=== PATIENT | female | born 1945 | race Caucasian/White ===

== ENCOUNTER → 2016-06-21 | Outpatient (CLI) | payer OTHER ==
[~2016-06-21] MED LIST: ALBINS INH; ALBUAER2 INH; APIX1TAB3 PO; CHOL1TAB42 PO; CYAN100020 PO; CZR50 PO; FIBER PO; FLUT0.15 NAE; LEVA45AE; LEVA45AE PO; LORA-741 PO; MAGN1TAB21 PO; MELA1CAP9 PO; MELA1TAB3 PO; MELATAB2 PO; MGN PO; MOME200A INH; MULT-190 PO; OMEG10007 PO; PANT40TA2 PO; POTA550T4 PO; PROB1CAP41 PO; SNG10 PO; SOTA120T PO; SOTA160T PO; TPRSR/50 PO; TRIATAB3 PO; XPNINS NEB
--- NOTE | 2016-06-21 16:09 | MAMMOGRAPHY REPORT ---
BILATERAL DIGITAL SCREENING MAMMOGRAM WITH CAD: 06/21/2016 CLINICAL HISTORY: Routine screening. Patient has no complaints. TECHNIQUE: Current study was also evaluated with a Computer Aided Detection (CAD) system. Bilatera l CC and MLO and XCCL views were obtained. COMPARISON: Comparison is made to exams dated: 06/16/2015 mammogram, 06/10/2014 mammogram, 06/04/2013 mammogram, 06/01/2012 mammogram, 05/30/2011 mammogram, and 03/21/2010 mammogram - [facility] enter. BREAST COMPOSITION: The tissue of both breasts is almost entirely fatty. FINDINGS: No suspicious masses, calcifications, or areas of architectural distortion are noted in e ither breast. There has been no significant interval change compared to prior exams. Bilateral samantha gn-appearing calcifications are not significantly changed. IMPRESSION: ACR BI-RADS CATEGORY 2: BENIGN There is no mammographic evidence of malignancy. A 1 year screening mammogram is recommended. The p atient will receive written notification of the results. Approximately 10% of breast cancers are not detected with mammography. A negative mammographic repor t should not delay biopsy if a clinically suggestive mass is present. Luzmaria Alexandra M.D. /:06/21/2016 15:56:46 Acid Tender: Lupe Knox, [facility] letter sent: Normal 1/2 BI-RADS Code: ACR BI-RADS Category 2: Benign
== END | disposition home or self-care (01) ==
LOC: C.MAMM 13:16
PROVIDERS: ATTEND Internal Medicine
DX: Z12.31 Encounter for screening mammogram for malignant neoplasm of breast (principal)

== ENCOUNTER → 2016-07-05 | Outpatient (CLI) | payer OTHER ==
[2016-07-05 16:38] LABS: BASO % 0.5 %; BASO ABS # 0.03 K/uL (0-0.2); COMPLETE YES; EOS % 1.4 %; HEMATOCRIT 37.9 % (37-47); IG% 0.2 %; LYMPH ABS # 1.24 K/uL (1.2-3.4); MEAN CELL VOLUME 97.9 fL (80-100); MEAN CORPUSCULAR HGB CONC 32.7 g/dl (32-36); MEAN PLATELET VOLUME 11.8 fL (7.4-10.4); MONO % 10.2 %; NEUT % 68.7 %; PLATELET COUNT 246 K/uL (130-400); RED BLOOD COUNT 3.87 M/uL (4.2-5.4); WHITE BLOOD COUNT 6.54 K/uL (4.8-10.8)
[2016-07-05 18:46] LABS: ALT/SGPT 20 U/L (12-78); AST/SGOT 9 U/L (15-37); BLOOD UREA NITROGEN 27 mg/dl (7-18); BUN/CREATININE RATIO 33.7 (10-20); CALCIUM 9.8 mg/dl (8.5-10.1); CARBON DIOXIDE 32 mmol/L (21-32); CHLORIDE 104 mmol/L (98-107); GLUCOSE 88 mg/dl (70-99); POTASSIUM 4.3 mmol/L (3.5-5.1); SODIUM 140 mmol/L (136-145)
[2016-07-05 18:55] LABS: ALB/GLOB RATIO 1.1 (0.9-2); ALKALINE PHOSPHATASE 53 U/L (45-117); MAGNESIUM 2.5 mg/dl (1.8-2.4)
== END | disposition home or self-care (01) ==
LOC: C.LAB1850 14:23
PROVIDERS: ATTEND Internal Medicine
DX: Z00.00 Encounter for general adult medical examination without abnormal findings (principal); I10 Essential (primary) hypertension; I48.0 Paroxysmal atrial fibrillation; Z11.59 Encounter for screening for other viral diseases

== ENCOUNTER → 2016-10-07 | Day surgery (SDC) | payer OTHER ==
[~2016-10-07] VITALS: Ht 162.6 cm; Wt 125.0 kg
[~2016-10-07] MED LIST changes: -FIBER PO; -LEVA45AE PO; +LIDOCAINE HCL 2% 2 ML VIAL (20MG/ML) ONE; -MAGN1TAB21 PO; -MELA1CAP9 PO; -MELATAB2 PO; -PANT40TA2 PO; -PROB1CAP41 PO; +PROPOFOL IV EMULSION 10 MG/ML 20 ML VIAL IV ONE; +PRT/40 PO; +XPNINS; -XPNINS NEB
[2016-10-07 07:12] VITALS: BP 146/100; PULSE 117; TEMP 36.5; O2SAT 99; Ht 162.6 cm; Wt 125.0 kg
[2016-10-07 08:05] VITALS: BP 146/100; PULSE 90; O2SAT 100
[2016-10-07 08:10] VITALS: BP 141/80; PULSE 110; O2SAT 100
--- NOTE | 2016-10-07 08:13 | History & Physical Bridge Note ---
H&P Re-Evaluation Bridge Note: I have examined the patient, reviewed the History & Physical and in the interval since the performance of the History & Physical I have noted the following changes of clinical significance: No changes noted. I reviewed the indications, procedure, risks and alternatives with her and she understands and agrees to proceed. Consent obtained.
[2016-10-07 08:15] VITALS: BP 109/76; PULSE 95; O2SAT 100
[2016-10-07 08:20] VITALS: BP 99/39; PULSE 56; O2SAT 100
--- NOTE | 2016-10-07 08:21 | Cardioversion ---
Electricial Cardioversion Rpt Date of Service: 10/07/2016 Electrical Cardioversion Rprt Successful uncomplicated cardioversion using a 200J synchronized biphasic shock via marcelina-posterior patch electrodes. Pt awoke without sequelae.
--- NOTE | 2016-10-07 08:40 | Anesthesiology Progress Note ---
Anesthesia Post Op Note Date & Time Oct 07, 2016 at 08:40 Vital Signs Pain Intensity: 0 Vital Signs Past 12 Hours Date Time Temp Pulse Resp B/P (MAP) Pulse Ox O2 Delivery O2 Flow Rate FiO2 10/07/16 08:32 52 18 102/54 (70) 96 Room Air 10/07/16 08:22 51 18 100/54 (69) 97 Room Air 10/07/16 08:20 56 18 99/39 100 Room Air 10/07/16 08:15 95 18 109/76 100 Nasal Cannula 4 10/07/16 08:10 110 18 141/80 100 Nasal Cannula 4 10/07/16 08:05 90 18 146/100 100 Nasal Cannula 4 10/07/16 07:12 36.5 117 16 146/100 99 Room Air Notes Mental Status: alert / awake / arousable, participated in evaluation Pt Amnestic to Procedure: Yes Nausea / Vomiting: adequately controlled Pain: adequately controlled Airway Patency, RR, SpO2: stable & adequate BP & HR: stable & adequate Hydration State: stable & adequate Anesthetic Complications: no major complications apparent
--- NOTE | 2016-10-07 09:07 | Discharge Instructions ---
Discharge Instructions Date of Service Oct 07, 2016. Admission Reason for Admission: A Fib Discharge Discharge Diagnosis / Problem: Electrical cardioversion Discharge Goals Goal(s): Improve disease control Activity Recommendations Activity Limitations: resume your previous activity . Instructions / Follow-Up Instructions / Follow-Up ACTIVITY RECOMMENDATIONS: * May resume driving tomorrow. SPECIAL CARE: * May apply burn ointment for skin irritation. * Please contact physician for any lightheadedness, dizziness or palpitations. We will schedule followup for 1 month Current Hospital Diet Patient's current hospital diet: AHA Diet (Heart Healthy) Discharge Diet Recommended Diet: AHA Diet (Heart Healthy) Pending Studies Studies pending at discharge: no Medical Emergencies . Who to Call and When: Medical Emergencies: If at any time you feel your situation is an emergency, please call 911 immediately. . Non-Emergent Contact Non-Emergency issues call your: Primary Care Provider . . "Provider Documentation" section prepared by Hector Palm. . VTE Core Measure Inpt VTE Proph given/why not?: Other Anticoagulation
[2016-10-07 09:15] VITALS: BP 120/65; PULSE 53; O2SAT 96
== END | disposition home or self-care (01) ==
LOC: C.CATH 06:17
PROVIDERS: ATTEND Internal Medicine Cardiovascular Disease
DX: I48.0 Paroxysmal atrial fibrillation (principal); R00.1 Bradycardia, unspecified; R00.2 Palpitations; I10 Essential (primary) hypertension; F41.9 Anxiety disorder, unspecified; J45.909 Unspecified asthma, uncomplicated; K21.9 Gastro-esophageal reflux disease without esophagitis; E66.01 Morbid (severe) obesity due to excess calories; G47.33 Obstructive sleep apnea (adult) (pediatric); Z82.49 Family history of ischemic heart disease and other diseases of the circulatory system

== ENCOUNTER 2016-12-23 21:01 | Emergency (ER) | payer OTHER ==
[~2016-12-23] VITALS: Ht 162.6 cm; Wt 123.3 kg
[~2016-12-23 21:01] MED LIST changes: -LIDOCAINE HCL 2% 2 ML VIAL (20MG/ML) ONE; -OMEG10007 PO; +PANT40TA2 PO; -POTA550T4 PO; -PROPOFOL IV EMULSION 10 MG/ML 20 ML VIAL IV ONE; -PRT/40 PO; -SOTA120T PO; -TPRSR/50 PO; -XPNINS; +XPNINS NEB
[2016-12-23 21:10] VITALS: TEMP 36.5; Ht 162.6 cm; Wt 123.3 kg
[2016-12-23] MEDS ORDERED: DILTIAZEM HCL 5 MG/ML 5 ML VIAL IV STA ×3 (21:33→22:35)
[2016-12-23 22:03] LABS: BASO % 0.4 %; BASO ABS # 0.03 K/uL (0-0.2); COMPLETE YES; EOS % 1.6 %; HEMATOCRIT 38.8 % (37-47); IG% 0.1 %; LYMPH % 23.2 %; LYMPH ABS # 1.62 K/uL (1.2-3.4); MEAN CELL VOLUME 94.4 fL (80-100); MEAN CORPUSCULAR HEMOGLOBIN 31.4 pg (25-34); MEAN CORPUSCULAR HGB CONC 33.2 g/dl (32-36); MEAN PLATELET VOLUME 11.1 fL (7.4-10.4); MONO % 9.3 %; NEUT % 65.4 %; PLATELET COUNT 303 K/uL (130-400); RED BLOOD COUNT 4.11 M/uL (4.2-5.4); WHITE BLOOD COUNT 6.98 K/uL (4.8-10.8)
--- NOTE | 2016-12-23 22:04 | DIAGNOSTIC IMAGING REPORT ---
CHEST ONE VIEW PORTABLE CLINICAL HISTORY: Chest pain. COMPARISON STUDY: Chest radiograph October 26, 2015. FINDINGS: Lung volumes are normal. No pneumothorax or pleural effusion is present. There is no evidence of pulmonary edema. Cardiomegaly is unchanged. IMPRESSION: No acute cardiopulmonary findings. Electronically signed by: Blu Jain M.D. 12/23/2016 10:03 PM Dictated Date/Time: 12/23/2016 10:02 PM
[2016-12-23] MEDS ORDERED: SODIUM CHLORIDE 0.9% 250ML 250 ML IV STA ×2 (22:06→22:36)
[2016-12-23 22:23] LABS: ALT/SGPT 19 U/L (12-78); BLOOD UREA NITROGEN 22 mg/dl (7-18); BUN/CREATININE RATIO 27.1 (10-20); CARBON DIOXIDE 27 mmol/L (21-32); CHLORIDE 105 mmol/L (98-107); CREATININE 0.79 mg/dl (0.60-1.20); GLUCOSE 118 mg/dl (70-99); MAGNESIUM 2.1 mg/dl (1.8-2.4); POTASSIUM 3.6 mmol/L (3.5-5.1); SODIUM 139 mmol/L (136-145)
[2016-12-23 22:31] LABS: ALKALINE PHOSPHATASE 61 U/L (45-117); AST/SGOT 13 U/L (15-37); CKMB/CK RATIO 1.2 (0-3.0)
[2016-12-23] MEDS ORDERED: FIBER PO (23:29)
[2016-12-23] MEDS ORDERED: MAGN1TAB21 PO (23:30)
[2016-12-23] MEDS ORDERED: MELATAB2 PO (23:32)
[2016-12-23] MEDS ORDERED: MELA1CAP9 PO (23:32)
[2016-12-23] MEDS ORDERED: OMEG10007 PO (23:33)
[2016-12-23] MEDS ORDERED: PROB1CAP41 PO (23:34)
[2016-12-23] MEDS ORDERED: LEVA45AE PO (23:35)
[2016-12-23] MEDS ORDERED: POTASSIUM CHLORIDE 10 MEQ TABCR PO STA (23:44)
[2016-12-24 01:26] VITALS: PULSE 54; O2SAT 98
[2016-12-24 01:32] VITALS: BP 117/48
--- NOTE | 2016-12-24 01:53 | EMERGENCY ROOM VISIT NOTE ---
History First contact with patient: 21:23 Chief Complaint: IRREGULAR HEARTBEAT Stated Complaint: ARRHYTHMIA- A FIB Nursing Triage Summary: Acute onset of palpitations at 0030 today, has been going on all day. Hx of A-fib, on Eliquis. No other complaints beyond the palpitations. History of Present Illness The patient is a 71 year old female who presents to the Emergency Room with complaints of fluttering in her chest since 12:30 AM this morning. Patient states she got up to go the bathroom and felt fluttering in her chest. She called her automobile repossessor and has appointment today at 2:30 PM. She's on our Eliquis. She is on sotalol. She was cardioverted 2 months ago. She's had A. fib for 6-7 years. No recent stress test or echo. Patient denies chest pain, dyspnea, fever, chills, abdominal pain, leg pain or swelling, recent illness, vomiting, diarrhea or any other medical complaints. Review of Systems See HPI for pertinent positives & negatives. A total of 10 systems reviewed and were otherwise negative. Past Medical/Surgical History Medical Problems: (1) Anxiety (2) Anxiety attack (3) Asthma (4) HTN (hypertension) A. fib Family History Cancer Heart disease Social History Smoking Status: Never Smoker Smokeless Tobacco Use: No Alcohol Use: none Drug Use: none Marital Status: Occupation Status: employed Current/Historical Medications Scheduled Apixaban (Eliquis), 1 TAB PO BID Cholecalciferol (Vitamin D), 5,000 UNITS PO DAILY Cyanocobalamin (Vitamin B12), 1,000 MCG PO QAM Fiber Laxative (Fiber Laxative), 1 CAP PO DAILY Fish Oil (Kelly-3), 2 CAP PO DAILY Fluticasone Propionate (Nasal) (Flonase Allergy Relief), 2 SPRAYS TIMOTHY QAM Losartan Potassium (Losartan Potassium), 50 MG PO QAM Magnesium Citrate (Mg Suppleme (Magnesium Citrate), 600 MG PO DAILY Melatonin (Melatonin), 10 MG PO HS Mometasone Furoate-Formoterol (Dulera 200/5 Mcg), 2 PUFFS INH BID Montelukast Sod (Montelukast Sodium), 10 MG PO HS Pantoprazole (Pantoprazole Sodium), 40 MG PO QAM Probiotic Product (Probiotic Daily), 1 CAP PO DAILY Sotalol Hcl (Sotalol Hcl), 160 MG PO BID Scheduled PRN Levalbuterol (Levalbuterol HCl), 3 ML NEB q6-8hrs PRN for SOB/Wheezing Levalbuterol Tartrate (Levalbuterol Tartrate Hfa), 2 PUFFS PO q6-8hrs PRN for SOB/Wheezing Lorazepam (Ativan), 1-2 TABS PO DAILY PRN for Anxiety Triamterene/Hctz (Triamterene/Hctz 37.5-25MG), 0.5 TAB PO DAILY PRN for SWELLING Physical Exam Vital Signs Date Time Temp Pulse Resp B/P (MAP) Pulse Ox O2 Delivery O2 Flow Rate FiO2 12/24/16 01:32 117/48 12/24/16 01:26 54 24 98 12/24/16 01:21 55 16 97 12/24/16 01:16 110/55 12/24/16 01:11 55 17 99 12/24/16 01:02 103/41 12/24/16 01:01 57 19 99 12/24/16 00:51 53 25 99 12/24/16 00:50 117/49 12/24/16 00:47 73/41 12/24/16 00:41 54 18 99 12/24/16 00:36 54 18 97 Room Air 12/24/16 00:32 106/48 12/24/16 00:26 53 15 97 12/24/16 00:17 109/50 12/24/16 00:16 56 13 98 12/24/16 00:06 59 21 98 12/24/16 00:02 104/49 12/23/16 23:56 56 18 95 12/23/16 23:47 111/60 12/23/16 23:46 59 14 98 12/23/16 23:36 55 17 99 12/23/16 23:31 58 19 129/62 97 Room Air 12/23/16 23:30 61 12/23/16 23:27 124/65 12/23/16 23:24 54 12/23/16 23:21 115 15 96 12/23/16 23:17 124/72 12/23/16 23:11 88 13 99 12/23/16 23:07 102/79 12/23/16 23:02 99/62 12/23/16 23:01 108 23 97 Room Air 12/23/16 22:53 142/73 12/23/16 22:51 105 21 99 12/23/16 22:41 101 18 137/84 97 12/23/16 22:36 107/72 12/23/16 22:32 127/62 12/23/16 22:31 94 18 98 12/23/16 22:27 139/78 12/23/16 22:22 137/85 12/23/16 22:21 104 16 98 12/23/16 22:20 106 16 140/65 97 Room Air 12/23/16 22:17 140/65 12/23/16 22:02 134/58 12/23/16 22:01 87 15 98 12/23/16 21:57 113/78 12/23/16 21:52 106/68 12/23/16 21:51 100 17 97 12/23/16 21:48 98 16 104/79 98 Room Air 12/23/16 21:47 104/79 12/23/16 21:41 110 21 118/84 98 Room Air 12/23/16 21:35 121/72 12/23/16 21:31 109 20 12/23/16 21:24 109 12/23/16 21:10 36.5 126 19 158/83 94 Room Air Physical Exam VITALS: Vitals are noted on the nurse's note and reviewed by myself. Vital signs tachycardic GENERAL: Pleasant female, in no acute distress, nondiaphoretic, well-developed well-nourished. SKIN: The skin was without rashes, erythema, edema, or bruising. There is no tenting of the skin. Capillary reflex less than 2 seconds. HEAD: Normocephalic atraumatic. EARS: External auditory canals clear, tympanic membranes pearly rossi without erythema or effusion bilaterally. EYES: Pupils equal round and reactive to light and accommodation. Conjunctivae without injection, sclerae without icterus. Extraocular movements intact. NOSE: Patent, turbinates without inflammation or discharge. MOUTH: Mucous membranes moist. Pharynx without erythema or exudate. Uvula midline. Airway patent. Tongue does not deviate. NECK: Supple without nuchal rigidity. No lymphadenopathy. No thyromegaly. Cervical spine is nontender. No JVD. HEART: Irregularly irregular and tachycardic. LUNGS: Clear to auscultation bilaterally without wheezes, rales or rhonchi. No dullness to percussion. No retractions or accessory muscle use. ABDOMEN: Positive bowel sounds x 4. Normal tympanic percussion. Soft, protuberant, obese, nontender, without masses or organomegaly. Pierre sign negative. No guarding or rebound tenderness. MUSCULOSKELETAL: No muscle atrophy, erythema, noted. NEURO: Patient was alert and oriented to person place and time. Normal sensation to light and sharp touch. No focal neurological deficits. Medical Decision & Procedures Laboratory Results 12/23/16 21:25 Red Blood Count 4.11, Mean Corpuscular Volume 94.4, Mean Corpuscular Hemoglobin 31.4, Mean Corpuscular Hemoglobin Concent 33.2, Mean Platelet Volume 11.1, Neutrophils (%) (Auto) 65.4, Lymphocytes (%) (Auto) 23.2, Monocytes (%) (Auto) 9.3, Eosinophils (%) (Auto) 1.6, Basophils (%) (Auto) 0.4, Neutrophils # (Auto) 4.56, Lymphocytes # (Auto) 1.62, Monocytes # (Auto) 0.65, Eosinophils # (Auto) 0.11, Basophils # (Auto) 0.03 12/23/16 21:25 Test 12/23/16 21:25 White Blood Count 6.98 K/uL (4.8-10.8) Red Blood Count 4.11 M/uL (4.2-5.4) Hemoglobin 12.9 g/dL (12.0-16.0) Hematocrit 38.8 % (37-47) Mean Corpuscular Volume 94.4 fL (80-100) Mean Corpuscular Hemoglobin 31.4 pg (25-34) Mean Corpuscular Hemoglobin Concent 33.2 g/dl (32-36) Platelet Count 303 K/uL (130-400) Mean Platelet Volume 11.1 fL (7.4-10.4) Neutrophils (%) (Auto) 65.4 % Lymphocytes (%) (Auto) 23.2 % Monocytes (%) (Auto) 9.3 % Eosinophils (%) (Auto) 1.6 % Basophils (%) (Auto) 0.4 % Neutrophils # (Auto) 4.56 K/uL (1.4-6.5) Lymphocytes # (Auto) 1.62 K/uL (1.2-3.4) Monocytes # (Auto) 0.65 K/uL (0.11-0.59) Eosinophils # (Auto) 0.11 K/uL (0-0.5) Basophils # (Auto) 0.03 K/uL (0-0.2) RDW Standard Deviation 48.7 fL (36.4-46.3) RDW Coefficient of Variation 14.0 % (11.5-14.5) Immature Granulocyte % (Auto) 0.1 % Immature Granulocyte # (Auto) 0.01 K/uL (0.00-0.02) Anion Gap 7.0 mmol/L (3-11) Est Creatinine Clear Calc Drug Dose 87.2 ml/min Estimated GFR () 88.5 Estimated GFR (Non- 76.4 BUN/Creatinine Ratio 27.1 (10-20) Calcium Level 9.0 mg/dl (8.5-10.1) Magnesium Level 2.1 mg/dl (1.8-2.4) Total Bilirubin 0.3 mg/dl (0.2-1) Direct Bilirubin < 0.1 mg/dl (0-0.2) Aspartate Amino Transf (AST/SGOT) 13 U/L (15-37) Alanine Aminotransferase (ALT/SGPT) 19 U/L (12-78) Alkaline Phosphatase 61 U/L (45-117) Total Creatine Kinase 50 U/L (26-192) Creatine Kinase MB 0.6 ng/ml (0.5-3.6) Creatine Kinase MB Ratio 1.2 (0-3.0) Troponin I < 0.015 ng/ml (0-0.045) Total Protein 7.6 gm/dl (6.4-8.2) Albumin 3.8 gm/dl (3.4-5.0) Lipase 163 U/L (73-393) Thyroid Stimulating Hormone (TSH) 4.870 uIu/ml (0.300-4.500) Medications Administered Medications (Trade) Dose Ordered Sig/Kelly Route Start Time Stop Time Status Last Admin Dose Admin Diltiazem HCl (Cardizem Inj) 10 mg NOW STAT IV 12/23/16 21:33 12/23/16 21:34 DC 12/23/16 21:38 10 MG Diltiazem HCl (Cardizem Inj) 10 mg NOW STAT IV 12/23/16 21:42 12/23/16 21:44 DC 12/23/16 21:47 10 MG Sodium Chloride 250 ml @ 999 mls/hr Q16M STAT IV 12/23/16 22:06 12/23/16 22:21 DC 12/23/16 21:56 999 MLS/HR Diltiazem HCl (Cardizem Inj) 30 mg NOW STAT IV 12/23/16 22:35 12/23/16 22:37 DC 12/23/16 22:59 30 MG Sodium Chloride 250 ml @ 999 mls/hr Q16M STAT IV 12/23/16 22:36 12/23/16 22:51 DC 12/23/16 23:06 999 MLS/HR Potassium Chloride (Klor-Con M10) 40 meq NOW STAT PO 12/23/16 23:44 12/23/16 23:45 DC 12/24/16 00:05 40 MEQ ED Course Prior records/ancillary studies reviewed. Triage Nursing notes reviewed. Additional history obtained from family. The patient's history was concerning for palpitations. Differential diagnosis: Etiologies such as A. fib, premature contractions, electrolyte abnormality, cardiac dysrhythmia, thyroid dysfunction, pulmonary embolism, infection, gastrointestinal, as well as others were entertained. Physical examination: Benign as above. ER treatment provided: Cardizem 2, IV fluids On reassessment the patient felt better. Diagnostic interpretation by me: Cardiac monitoring revealed A. fib and after the second Cardizem bolus the patient converted to normal sinus. The electrocardiogram was even really irregular with no acute ST-T wave changes with rate 120. Impression atrial fibrillation with RVR. Repeat EKG after patient converted to normal sinus rhythm was normal sinus rhythm with no acute ST-T wave changes with rate of 52. Impression sinus bradycardia interpreted by myself. The labs revealed negative troponin. Stable H&H. Imaging studies: Chest x-ray as above. CHEST ONE VIEW PORTABLE CLINICAL HISTORY: Chest pain. COMPARISON STUDY: Chest radiograph October 26, 2015. FINDINGS: Lung volumes are normal. No pneumothorax or pleural effusion is present. There is no evidence of pulmonary edema. Cardiomegaly is unchanged. IMPRESSION: No acute cardiopulmonary findings. Electronically signed by: Blu Jain M.D. This appears to be consistent with atrial fibrillation with RVR that resolved after 2 doses of Cardizem. She was reassessed multiple times. She remained stable. Patient has appointment within 12 hours with her automobile repossessor. She was observed for an hour and half after she converted to normal sinus rhythm with no complications. She requested to leave. I feel this is reasonable. She was ambulate without difficulties. She had negative troponin. She was asymptomatic. She is advised to rest, stay well-hydrated and to follow-up as scheduled today with her automobile repossessor or here in the ER sooner for chest pain, difficulty breathing, palpitations, problems with her A. fib, worsening signs or symptoms or as needed. Patient states she's not missed any doses of her Eliquis. By the evaluation outlined above emergent etiologies such as electrolyte abnormality, thyroid dysfunction, pulmonary embolism, infection, as well as others were deemed relatively unlikely. The pt informed about the findings as listed above. All questions were answered and pleased with the treatment. Return instructions were outlined and the patient was discharged in stable condition. Case reviewed with my attending Referral: The patient was referred back to her automobile repossessor today as scheduled for a recheck of the current condition Medical Decision As above Medication Reconcilliation Current Medication List: was personally reviewed by me Blood Pressure Screening Patient's blood pressure: Normal blood pressure Impression Primary Impression: Atrial fibrillation with rapid ventricular response Critical Care I have personally spent greater than 30 minutes of critical care time in the direct management of this patient. This includes bedside care, interpretation of diagnostic studies, and testing, discussion with consultants, patient, and family members, and other required patient management activities. This 30 minutes is in excess of all separately billable procedures. Departure Information Dispostion Home / Self-Care Condition GOOD Referrals RV. Cristina MD (PCP) Forms HOME CARE DOCUMENTATION FORM, IMPORTANT VISIT INFORMATION Patient Instructions Atrial Fibrillation Scott, Lyudmila [facility] [employer] Additional Instructions Keep your appointment today as scheduled with your automobile repossessor. Rest and drink plenty of fluids as tolerated. Continue current medications. Return to the ER immediately for worsening or persistent fluttering of your heart, abdominal pain, vomiting, fevers, chest pains, difficulty breathing, worsening of your condition, or as needed. Follow up with your primary physician in 2-3 days for a recheck of your current condition.
--- NOTE | 2016-12-24 07:50 | EMERGENCY ROOM VISIT NOTE ---
ED Visit Note First contact with patient: 21:23 HPI: h/o afib on Eliquis and sotalol here with Afib with rvr to 130s. Plan: Given IV dilt x 2 with initial marginal effect then spontaneously converted. Sx resolved. Labs unremarkable. Has cards f/u tomorrow. OK for d/c. I reviewed the patient's past medical history, medications, and visit nursing notes. I discussed the case with the physician clinic assistant, examined the patient, and agree with the findings and plan as documented in the physician assistants note.
== END 2016-12-24 01:38 | disposition home or self-care (01) ==
LOC: C.EDB 21:03
DX: I48.0 Paroxysmal atrial fibrillation (principal); F41.9 Anxiety disorder, unspecified; J45.909 Unspecified asthma, uncomplicated; I10 Essential (primary) hypertension; Z80.9 Family history of malignant neoplasm, unspecified; Z82.49 Family history of ischemic heart disease and other diseases of the circulatory system; Z79.01 Long term (current) use of anticoagulants; Z79.899 Other long term (current) drug therapy

== ENCOUNTER → 2017-03-19 | Outpatient (CLI) | payer OTHER ==
[~2017-03-19] MED LIST changes: -ALBINS INH; -ALBUAER2 INH; +FIBER PO; -LEVA45AE; +LEVA45AE PO; +MAGN1TAB21 PO; +MELA1CAP9 PO; -MELA1TAB3 PO; -MGN PO; -MULT-190 PO; +OMEG10007 PO; +PROB1CAP41 PO
--- NOTE | 2017-03-19 16:31 | DIAGNOSTIC IMAGING REPORT ---
CHEST 2 VIEWS ROUTINE CLINICAL HISTORY: Pneumonia. Acute upper respiratory infection. Asthma. COMPARISON STUDY: Chest radiograph December 23, 2016. FINDINGS: Lung volumes are normal. No pneumothorax or pleural effusion is noted. Moderate cardiomegaly is noted without evidence for pulmonary edema. There is no consolidation to suggest pneumonia. Linear left midlung opacity suggestive of atelectasis or scarring. IMPRESSION: No acute cardiopulmonary findings. Stable cardiomegaly. Electronically signed by: Blu Jain M.D. 03/19/2017 4:30 PM Dictated Date/Time: 03/19/2017 4:28 PM
== END | disposition home or self-care (01) ==
LOC: C.RAD1850 15:55
PROVIDERS: ATTEND Internal Medicine Pulmonary Disease
DX: J45.901 Unspecified asthma with (acute) exacerbation (principal); J06.9 Acute upper respiratory infection, unspecified; I51.7 Cardiomegaly

== ENCOUNTER → 2017-04-11 | Outpatient (CLI) | payer OTHER | END | disposition home or self-care (01) | LOC: C.LAB1850 13:42 | PROVIDERS: ATTEND Internal Medicine Cardiovascular Disease | DX: I48.0 Paroxysmal atrial fibrillation (principal) ==

== ENCOUNTER → 2017-06-27 | Outpatient (CLI) | payer OTHER ==
--- NOTE | 2017-06-30 14:34 | MAMMOGRAPHY REPORT ---
BILATERAL DIGITAL SCREENING MAMMOGRAM TOMOSYNTHESIS WITH CAD: 06/27/2017 CLINICAL HISTORY: Routine screening. Patient has no complaints. TECHNIQUE: Breast tomosynthesis in addition to standard 2D mammography was performed. Current study was also evaluated with a Computer Aided Detection (CAD) system. COMPARISON: Comparison is made to exams dated: 06/21/2016 mammogram, 06/16/2015 mammogram, 06/10/2014 m ammogram, 06/04/2013 mammogram, 06/01/2012 mammogram, and 05/30/2011 mammogram - [facility]. BREAST COMPOSITION: The tissue of both breasts is almost entirely fatty. FINDINGS: No suspicious masses, calcifications, or areas of architectural distortion are noted in ei ther breast. There has been no significant interval change compared to prior exams. Bilateral benign -appearing calcifications are not significantly changed. IMPRESSION: ACR BI-RADS CATEGORY 2: BENIGN There is no mammographic evidence of malignancy. A 1 year screening mammogram is recommended. The pa tient will receive written notification of the results. Approximately 10% of breast cancers are not detected with mammography. A negative mammographic report should not delay biopsy if a clinically suggestive mass is present. Luzmaria Alexandra M.D. /:06/27/2017 14:30:24 Eclectic Doctor: Kathleen BATEMAN(Emma)(Azucena)(VERA), [facility] letter sent: Normal 1/2 BI-RADS Code: ACR BI-RADS Category 2: Benign
== END | disposition home or self-care (01) ==
LOC: C.MAMM 13:14
PROVIDERS: ATTEND Obstetrics & Gynecology
DX: Z12.31 Encounter for screening mammogram for malignant neoplasm of breast (principal)

== ENCOUNTER 2017-10-10 15:06 | Emergency (ER) | payer OTHER ==
[~2017-10-10] VITALS: Ht 162.6 cm; Wt 117.0 kg
[~2017-10-10 15:06] MED LIST changes: -CHOL1TAB42 PO; -FIBER PO; -LEVA45AE PO; -PROB1CAP41 PO
[2017-10-10 15:13] VITALS: Ht 162.6 cm; Wt 117.0 kg
--- NOTE | 2017-10-10 15:57 | EMERGENCY ROOM VISIT NOTE ---
History Report prepared by Luigi: Kandcae Tuttle Under the Supervision of: Dr. Noah Marie D.O. First contact with patient: 15:24 Chief Complaint: URINARY SYMPTOMS Stated Complaint: BURNING WITH VOID History of Present Illness The patient is a 72 year old female who presents to the Emergency Room with complaints of constant urinary symptoms that onset a week ago. 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 She notes that she last saw her surgeon 1 week ago and that everything was normal during her exam. The patient states that her sinus issues onset this week and that she has had an increase of drainage down her throat. She notes drainage is typically a problem for her because of her asthma, but the current amount is "excessive". She states that she has not vomited, but her nausea has increased in severity since yesterday. The patient complains of abdominal pain and a fever of 98.1-98.5. The patient denies coughing, vomiting, vaginal bleeding, vaginal drainage, throat blockage secondary to drainage, and blood in her throat. She notes that she has a history of sinus infections and that she has been prescribed Amoxicillin in the past. She denies the use of current antibiotics. Source of History: patient Onset: A week ago Position: other (bladder) Symptom Intensity: excessive Timing: constant Associated Symptoms: + fevers, + nausea, + abdominal pain, No cough, No vomiting Note: The patient denies vaginal bleeding, vaginal drainage, throat blockage secondary to drainage, and blood in her throat. Review of Systems See HPI for pertinent positives & negatives. A total of 10 systems reviewed and were otherwise negative. Past Medical & Surgical Medical Problems: (1) Anxiety (2) Anxiety attack (3) Asthma (4) HTN (hypertension) Surgical Problems: (1) H/O: hysterectomy Family History Cancer Heart disease Social History Smoking Status: Never Smoker Alcohol Use: none Drug Use: none Marital Status: Occupation Status: employed Current/Historical Medications Scheduled Apixaban (Eliquis), 1 TAB PO BID Budesonide/Formoterol Fumarate (Symbicort 160/4.5 Inhaler), 2 PUFF INH BID Cholecalciferol (Vitamin D), 5,000 UNITS PO DAILY Coenzyme Q10 (Ubidecarenone) (Co Q-10), 200 MG PO DAILY Cranberry (Vaccinium Macrocarp (Cranberry), 400 MG PO DAILY Cyanocobalamin (Vitamin B12), 1,000 MCG PO QAM Digoxin (Digoxin), 0.125 MG PO DAILY Fiber Laxative (Fiber Laxative), 1 CAP PO DAILY Losartan Potassium (Losartan Potassium), 50 MG PO QAM Magnesium Oxide (Mg Supplement (Magnesium), 500 MG PO DAILY Melatonin (Melatonin), 15 MG PO HS Montelukast Sod (Montelukast Sodium), 10 MG PO HS Mupirocin (Bactroban 2% Oint), 1 APPLN TOP BID Pantoprazole (Pantoprazole Sodium), 40 MG PO QAM Potassium (Potassium), 99 MG PO DAILY Probiotic Product (Probiotic Daily), 2 CAP PO DAILY Sotalol Hcl (Sotalol Hcl), 240 MG PO BID Turmeric (Curcuma Longa) (Turmeric), 1 TAB PO DAILY Scheduled PRN Azelastine Hcl (Astelin Nasal [place]), 1 SPRAY TIMOTHY DAILY PRN for Nasal Congestion Hydrocodone/Acetaminophen 5MG/325MG ([place] 5MG/325MG), 1 TABLET PO Q6 PRN for Pain Levalbuterol (Levalbuterol HCl), 3 ML NEB q6-8hrs PRN for SOB/Wheezing Levalbuterol Tartrate (Levalbuterol Tartrate Hfa), 2 PUFFS PO q6-8hrs PRN for SOB/Wheezing Lorazepam (Ativan), 1-2 TABS PO DAILY PRN for Anxiety Triamterene/Hctz (Triamterene/Hctz 37.5-25MG), 0.5 TAB PO DAILY PRN for SWELLING Allergies Coded Allergies: Diphenhydramine (Unverified Allergy, Mild, ., 10/07/16) Doxycycline (Unverified Allergy, Mild, ., 10/07/16) Physical Exam Vital Signs Date Time Temp Pulse Resp B/P (MAP) Pulse Ox O2 Delivery O2 Flow Rate FiO2 10/10/17 17:50 36.9 57 18 131/55 94 10/10/17 17:48 57 18 131/55 94 Room Air 10/10/17 15:54 59 18 138/55 94 Room Air 10/10/17 15:13 36.9 59 18 144/56 94 Room Air Physical Exam GENERAL: Patient is awake, alert, and in no acute distress. Patient is resting comfortably and showing no signs of anxiety EYES: The conjunctivae are clear. The pupils are round and reactive. EARS, NOSE, MOUTH AND THROAT: Tympanic membranes were clear bilaterally. Mild erythema of the nasal mucosa. No significant discharge notes. Cobble stone noted of the post oropharynx. The nose is without any evidence of any deformity. Mucous membranes are moist. Tongue is midline NECK: The neck is nontender and supple. RESPIRATORY: Normal respiratory effort is noted. There is no evidence of wheezing rhonchi or rales to auscultation. CARDIOVASCULAR: Regular rate and rhythm noted. There no murmurs rubs or gallops normal S1 normal S2 GASTROINTESTINAL: The abdomen is soft. Bowel sounds are present in all quadrants. Abdomen is nontender. BACK: No midline tenderness or or step-off noted range of motion in flexion extension as well as rotation no signs of muscle spasm noted. MUSCULOSKELETAL/EXTREMITIES: There is no evidence of gross deformity. Full range of motion is noted in the hips and shoulders. SKIN: Trace pedal edema bilaterally. NEUROLOGIC: Patient is awake alert and oriented x3. Medical Decision & Procedures Laboratory Results Test 10/10/17 15:51 Urine Color DK YELLOW Urine Appearance CLEAR (CLEAR) Urine pH 5.0 (4.5-7.5) Urine Specific Wise 1.036 (1.000-1.030) Urine Protein TRACE (NEG) Urine Glucose (UA) NEG (NEG) Urine Ketones TRACE (NEG) Urine Occult Blood TRACE (NEG) Urine Nitrite NEG (NEG) Urine Bilirubin NEG (NEG) Urine Urobilinogen NEG (NEG) Urine Leukocyte Esterase NEG (NEG) Urine WBC (Auto) 5-10 /hpf (0-5) Urine RBC (Auto) 0-4 /hpf (0-4) Urine Hyaline Casts (Auto) 5-10 /lpf (0-5) Urine Epithelial Cells (Auto) >30 /lpf (0-5) Urine Bacteria (Auto) NEG (NEG) Laboratory results per my review. ED Course 152: The patient was evaluated in room B5. A complete history and physical examination were performed. 1650: Upon reevaluation, the patient is resting comfortably. I discussed results and treatment plan with her. She verbalizes agreement and understanding. 1744: Upon reevaluation, the patient is resting comfortably. I discussed the results and treatment plan with her. She verbalized agreement of the treatment plan. She was discharged home. Medical Decision Prior records/ancillary studies reviewed. Triage Nursing notes reviewed. Additional history obtained from the family. The patient's history was concerning for her pain. Differential diagnosis: Etiologies such as renal colic, appendicitis, diverticulitis, mesenteric ischemia, aortic pathology, infections, inflammatory bowel disease, PUD, biliary pathology, UTI, as well as others were entertained. The patient is a 72-year-old female who presented to the emergency department for dysuria. She also has been complaining of sinusitis symptoms. She was started on an antibiotic by her primary care physician but she has not started this medication yet. The patient also complained of dysuria and frequency. She had a recent hysterectomy. I discussed the patient's laboratory results with her. She has a history of A. fib and takes multiple cardiac medications and was uncomfortable being started on any new antibiotics but was comfortable starting the amoxicillin. Urine was sent for culture and she was encouraged to start taking the amoxicillin as soon as possible. She is also encouraged to drink plenty clear liquids and follow-up with her family doctor soon as possible. She is also encouraged to return the emergency department immediately if symptoms change worsen or the need arises. Medication Reconcilliation Current Medication List: was personally reviewed by me Blood Pressure Screening Patient's blood pressure: Normal blood pressure Impression Primary Impression: Dysuria Additional Impression: Sinusitis Scribe Attestation The scribe's documentation has been prepared under my direction and personally reviewed by me in its entirety. I confirm that the note above accurately reflects all work, treatment, procedures, and medical decision making performed by me. Departure Information Dispostion Home / Self-Care Referrals RV. Cristina MD (PCP) Forms HOME CARE DOCUMENTATION FORM, IMPORTANT VISIT INFORMATION Patient Instructions My [facility] Additional Instructions Call your family doctor to schedule a follow-up appointment. Follow-up with your [facility] physician as scheduled. Continue to drink plenty of clear liquids. Continue all other medications as prescribed. I would recommend starting the amoxicillin that was prescribed earlier by her doctor as soon as possible. Return to the emergency department immediately if symptoms change worsen or the need arises. Problem Qualifiers Additional Impression: Sinusitis Sinusitis location: unspecified location Chronicity: acute Recurrence: non -recurrent Qualified Codes: J01.90 - Acute sinusitis, unspecified
[2017-10-10] MEDS ORDERED: BCTROWC TOP (17:22)
[2017-10-10] MEDS ORDERED: ASTN NAE (17:22)
[2017-10-10] MEDS ORDERED: SOTA240T PO (17:22)
[2017-10-10] MEDS ORDERED: LNX125 PO (17:22)
[2017-10-10] MEDS ORDERED: TURM1CAP4 PO (17:22)
[2017-10-10] MEDS ORDERED: SYMIN160 INH (17:22)
[2017-10-10] MEDS ORDERED: MELA5CAP PO (17:22)
[2017-10-10] MEDS ORDERED: MAGN500C PO (17:22)
[2017-10-10] MEDS ORDERED: COEN1CAP37 PO (17:25)
[2017-10-10] MEDS ORDERED: POTA99TA PO (17:25)
[2017-10-10] MEDS ORDERED: CRAN1TAB4 PO (17:25)
[2017-10-10] MEDS ORDERED: HYDR-5688 PO (17:25)
[2017-10-10 17:50] VITALS: BP 131/55; PULSE 57; TEMP 36.9; O2SAT 94
[2017-10-10] MEDS ORDERED: CHOL1TAB42 PO (22:21)
[2017-10-10] MEDS ORDERED: FIBER PO (23:29)
[2017-10-10] MEDS ORDERED: PROB1CAP41 PO (23:34)
[2017-10-10] MEDS ORDERED: LEVA45AE PO (23:35)
== END 2017-10-10 17:52 | disposition home or self-care (01) ==
LOC: C.EDB 15:08
DX: R30.0 Dysuria (principal); J01.90 Acute sinusitis, unspecified; I48.91 Unspecified atrial fibrillation; F41.9 Anxiety disorder, unspecified; J45.909 Unspecified asthma, uncomplicated; I10 Essential (primary) hypertension; Z79.01 Long term (current) use of anticoagulants; Z79.899 Other long term (current) drug therapy; Z88.1 Allergy status to other antibiotic agents; Z88.8 Allergy status to other drugs, medicaments and biological substances

== ENCOUNTER 2018-04-04 10:35 | Inpatient (IN) ==
[2018-04-04 11:29] LABS: Basophils # (auto) 0.03 K/uL (0-0.2); Basophils % (auto) 0.4 %; Eosinophils # (auto) 0.16 K/uL (0-0.5); Eosinophils % (auto) 2.2 %; Hematocrit (blood only) 40.6 % (37-47); Hemoglobin 13.4 g/dL (12.0-16.0); Immature Granulocytes # (auto) 0.02 K/uL (0.00-0.02); Immature Granulocytes % (auto) 0.3 %; Lymphocytes % (auto) 13.6 %; Mean Corpuscular Volume 97.8 fL (80-100); Mean Platelet Volume 10.9 fL (7.4-10.4); Monocytes # (auto) 0.75 K/uL (0.11-0.59); Monocytes % (auto) 10.2 %; Neutrophils % (auto) 73.3 %; Platelet Count 267 K/uL (130-400); RDW Coefficient of Variation 14.5 % (11.5-14.5); RDW Standard Deviation 51.6 fL (36.4-46.3); Red Blood Count 4.15 M/uL (4.2-5.4); White Blood Count 7.36 K/uL (4.8-10.8)
[2018-04-04] MEDS ORDERED: SODIUM CHLORIDE 0.9% 500 ML IV SCH (11:30)
--- NOTE | 2018-04-04 11:35 | Emergency Department Note ---
Entered by Sandrine Michaels acting as a scribe for Noah Marie DO History of Present Illness General Chief complaint: Arrhythmia/Palpitations Stated complaint: A-FIB, NEW MEDS CAUSING HER TO BLACK OUT Time Seen by Provider: 04/04/18 11:16 Source: patient Mode of arrival: ambulatory Limitations: no limitations History of Present Illness Provider complaint: Arrhythmia Onset (ago): day(s) (around 1999 last night) Location: chest Radiation: non-radiation Pain Consistency: + other (worsening) Quality: + other (arrhythmia) Relieved By: + none Associated symptoms: + other (Additional symptoms: feeling like passing out, head discomfort, skin tightness); no shortness of breath The patient is a 73 year old female with a history of asthma, anxiety, GERD, hypertension, endometrioid adenocarcinoma of the uterus, and hysterectomy who presents to the Emergency Room with complaints of worsening arrhythmia starting around 1999 last night. The patient reports that she started taking 30 mg Diltiazem PRN 2.5 weeks ago for atrial fibrillation. She states that she has had 2 episodes of arrhythmia since starting on Diltiazem and she notes that it helped to alleviate her both episodes after 3 doses each. She reports that after taking 1 dose at 1999 last night and 1 dose at 0400 today for her current episode of arrhythmia, her arrhythmia symptoms have not improved. She also complains of feeling like she is going to pass out, discomfort in her head, and skin tightness. The patient reports that she is on Sotalol and Digoxin as well. Home Medications Home Medications Medication Instructions Recorded Confirmed Type albuterol sulfate 2 puff INHALATION QID PRN 01/25/18 04/04/18 History cholecalciferol (vitamin D3) 5,000 unit PO DAILY 01/25/18 04/04/18 History [Vitamin D3] coenzyme Q10 200 mg PO QAM 01/25/18 04/04/18 History cyanocobalamin (vitamin B-12) 1,000 mcg PO QAM 01/25/18 04/04/18 History [Vitamin B-12] digoxin 250 mcg PO QPM 01/25/18 04/04/18 History lactobacillus combination no.4 2 cap PO QAM 01/25/18 04/04/18 History [Probiotic] levalbuterol HCl 3 ml INHALATION Q6H PRN 01/25/18 04/04/18 History lorazepam 0.5 mg PO BID PRN 01/25/18 04/04/18 History montelukast 10 mg PO HS 01/25/18 04/04/18 History pantoprazole 40 mg PO QAM 01/25/18 04/04/18 History potassium 99 mg PO QAM 01/25/18 04/04/18 History psyllium husk [Fiber Laxative 0.52 g PO QAM 01/25/18 04/04/18 History (psyllium husk)] sotalol 240 mg PO BID 01/25/18 04/04/18 History triamterene-hydrochlorothiazid 1 tab PO QAM 01/25/18 04/04/18 History turmeric 400 mg PO QAM 01/25/18 04/04/18 History apixaban 5 mg tablet 5 mg PO BID 03/10/18 04/04/18 History azelastine 137 mcg (0.1 %) nasal 1 spray INTRANASAL DAILY 03/10/18 04/04/18 History spray aerosol budesonide-formoterol HFA 160 2 puffs INH BID 03/10/18 04/04/18 History mcg-4.5 mcg/actuation aerosol inhaler losartan 50 mg tablet 50 mg PO QAM tab 03/10/18 04/04/18 History magnesium citrate 100 mg tablet 600 mg PO DAILY tab 03/10/18 04/04/18 History mupirocin 2 % topical ointment 1 appln TOP BID 03/10/18 04/04/18 History omega-3 fatty acids 1,000 mg 2,000 mg PO DAILY cap 03/10/18 04/04/18 History capsule diltiazem HCl 30 mg PO DAILY 04/04/18 04/04/18 History Allergies Allergy/AdvReac Type Severity Reaction Status Date / Time diphenhydramine Allergy Mild Dry mouth Verified 04/04/18 11:48 makes it hard to breathe doxycycline Allergy Mild GI Verified 04/04/18 11:48 Intolerance Perfume AdvReac Intermediate Asthma Uncoded 04/04/18 11:48 Past Med/Surg History Medical History Asthma (Chronic) Anxiety (Chronic) HTN (hypertension) (Chronic) Atrial fibrillation (Acute) Supraventricular premature beats (Acute) Endometrioid adenocarcinoma of uterus (Acute 08/21/17) Status post endometrial biopsy August 21, 2017 Status post SI assisted robotic laparoscopic hysterectomy, RSO, right pelvic lymphadenectomy and bilateral periaortic lymph node sampling September 18, 2017 Status post completion of radiation therapy, completed 11/07/2017. Atrial flutter Atypical, symptomatic, well-controlled ventricular response. GERD (gastroesophageal reflux disease) History of cardioversion 2016. half-way current use of anticoagulant Morbid obesity CHRISTOPHER (obstructive sleep apnea) 2015 study = "mild," pt refused treatment Tinnitus Surgical History H/O: hysterectomy with RSO and lymph node sampling History of mandibular surgery Hx of colonoscopy Hx of laparoscopy REMOVAL OF LSO Hx of lipoma RIGHT HIP REMOVAL OF LIPOMA Hx of tooth extraction Family History Sister A-fib Social History marital status: Current Living Situation: Family Current Living Situation Comment: with son current occupational status: employed Other Information That Helps Us Care for You: No Feels Safe at Home: Yes Safety Concerns: Feels Safe At This Time Smoking Status: Never smoker Second Hand Exposure: No Hx Alcohol Use: No Hx Substance Use: No Beliefs That Will Affect Care: Latter-Day Latter-Day Beliefs: scientology Preferred Language: Albanian Communication Ability: Effective Stretcher Operator Required: No Review of Systems See HPI for pertinent positives & negatives. and A total of 10 systems reviewed and were otherwise negative Physical Exam Vital Signs Vital Signs - 24 hr 04/04/18 10:40 04/04/18 10:59 04/04/18 11:13 Temperature 36.7 C Temperature Source Oral Oral Sepsis Recent Fever Within 48 Hours No Sepsis Action Taken by Nursing No Action Required Pulse Rate 94 H 48 L Pulse Rate [Left Finger] Pulse Rhythm Irregular Pulse Strength Normal Respiratory Rate 20 17 Respiratory Effort / Characteristics Non-Labored Respiratory Depth Normal Respiratory Pattern Regular Blood Pressure 142/88 H 176/53 H Blood Pressure [Left Arm] Blood Pressure Mean 106 94 Blood Pressure Mean [Left Arm] Blood Pressure Position Sitting Blood Pressure Position [Left Arm] Pulse Oximetry 98 98 Oxygen Delivery Method Room Air Room Air 04/04/18 11:14 04/04/18 11:20 04/04/18 11:21 Temperature Temperature Source Sepsis Recent Fever Within 48 Hours Sepsis Action Taken by Nursing Pulse Rate 43 L 45 L Pulse Rate [Left Finger] Pulse Rhythm Pulse Strength Respiratory Rate 14 13 Respiratory Effort / Characteristics Respiratory Depth Respiratory Pattern Blood Pressure Blood Pressure [Left Arm] Blood Pressure Mean Blood Pressure Mean [Left Arm] Blood Pressure Position Blood Pressure Position [Left Arm] Pulse Oximetry 98 Oxygen Delivery Method Room Air 04/04/18 11:30 04/04/18 11:32 04/04/18 11:40 Temperature Temperature Source Sepsis Recent Fever Within 48 Hours Sepsis Action Taken by Nursing Pulse Rate 47 L 46 L 46 L Pulse Rate [Left Finger] Pulse Rhythm Pulse Strength Respiratory Rate 15 14 16 Respiratory Effort / Characteristics Respiratory Depth Respiratory Pattern Blood Pressure 156/46 H Blood Pressure [Left Arm] Blood Pressure Mean 82 Blood Pressure Mean [Left Arm] Blood Pressure Position Blood Pressure Position [Left Arm] Pulse Oximetry 99 99 100 Oxygen Delivery Method 04/04/18 11:50 04/04/18 12:00 04/04/18 12:01 Temperature Temperature Source Sepsis Recent Fever Within 48 Hours Sepsis Action Taken by Nursing Pulse Rate 41 L 40 L 42 L Pulse Rate [Left Finger] Pulse Rhythm Pulse Strength Respiratory Rate 17 13 14 Respiratory Effort / Characteristics Respiratory Depth Respiratory Pattern Blood Pressure 146/53 H Blood Pressure [Left Arm] Blood Pressure Mean 84 Blood Pressure Mean [Left Arm] Blood Pressure Position Blood Pressure Position [Left Arm] Pulse Oximetry 99 98 99 Oxygen Delivery Method 04/04/18 12:10 04/04/18 12:20 04/04/18 12:35 Temperature Temperature Source Sepsis Recent Fever Within 48 Hours Sepsis Action Taken by Nursing Pulse Rate 46 L 45 L 49 L Pulse Rate [Left Finger] Pulse Rhythm Pulse Strength Respiratory Rate 18 17 21 Respiratory Effort / Characteristics Respiratory Depth Respiratory Pattern Blood Pressure Blood Pressure [Left Arm] Blood Pressure Mean Blood Pressure Mean [Left Arm] Blood Pressure Position Blood Pressure Position [Left Arm] Pulse Oximetry 100 99 Oxygen Delivery Method 04/04/18 12:40 04/04/18 14:01 04/04/18 14:20 Temperature Temperature Source Sepsis Recent Fever Within 48 Hours Sepsis Action Taken by Nursing Pulse Rate 54 L 46 L Pulse Rate [Left Finger] Pulse Rhythm Pulse Strength Respiratory Rate 19 15 13 Respiratory Effort / Characteristics Respiratory Depth Respiratory Pattern Blood Pressure 149/59 H Blood Pressure [Left Arm] Blood Pressure Mean 89 Blood Pressure Mean [Left Arm] Blood Pressure Position Blood Pressure Position [Left Arm] Pulse Oximetry 96 98 98 Oxygen Delivery Method 04/04/18 14:30 04/04/18 14:31 04/04/18 14:40 Temperature Temperature Source Sepsis Recent Fever Within 48 Hours Sepsis Action Taken by Nursing Pulse Rate 45 L 47 L 48 L Pulse Rate [Left Finger] Pulse Rhythm Pulse Strength Respiratory Rate 15 17 18 Respiratory Effort / Characteristics Respiratory Depth Respiratory Pattern Blood Pressure 137/53 L Blood Pressure [Left Arm] Blood Pressure Mean 81 Blood Pressure Mean [Left Arm] Blood Pressure Position Blood Pressure Position [Left Arm] Pulse Oximetry 98 97 98 Oxygen Delivery Method 04/04/18 14:50 04/04/18 15:00 04/04/18 15:01 Temperature Temperature Source Sepsis Recent Fever Within 48 Hours Sepsis Action Taken by Nursing Pulse Rate 50 L 45 L 46 L Pulse Rate [Left Finger] Pulse Rhythm Pulse Strength Respiratory Rate 16 15 16 Respiratory Effort / Characteristics Respiratory Depth Respiratory Pattern Blood Pressure 140/55 L Blood Pressure [Left Arm] Blood Pressure Mean 83 Blood Pressure Mean [Left Arm] Blood Pressure Position Blood Pressure Position [Left Arm] Pulse Oximetry 98 99 97 Oxygen Delivery Method 04/04/18 16:09 04/04/18 16:20 04/04/18 17:56 Temperature 36.6 C Temperature Source Oral Sepsis Recent Fever Within 48 Hours Sepsis Action Taken by Nursing Pulse Rate 48 L 91 H Pulse Rate [Left Finger] 50 L Pulse Rhythm Pulse Strength Respiratory Rate 16 Respiratory Effort / Characteristics Non-Labored Spontaneous Respiratory Depth Normal Respiratory Pattern Regular Blood Pressure Blood Pressure [Left Arm] 144/77 H Blood Pressure Mean Blood Pressure Mean [Left Arm] 99 Blood Pressure Position Blood Pressure Position [Left Arm] Sitting Pulse Oximetry 95 Oxygen Delivery Method Room Air GENERAL: Patient is awake alert in no acute distress patient is resting comfortably and showing no signs of anxiety EYES: The conjunctivae are clear. The pupils are round and reactive. EARS, NOSE, MOUTH AND THROAT: The nose is without any evidence of any deformity. Mucous membranes are moist tongue is midline NECK: The neck is nontender and supple. RESPIRATORY: Normal respiratory effort is noted there is no evidence of wheezing rhonchi or rales CARDIOVASCULAR: Bradycardic rate with regular rhythm was noted. GASTROINTESTINAL: The abdomen is soft. Bowel sounds are present in all quadrants. Abdomen is nontender MUSCULOSKELETAL/EXTREMITIES: There is no evidence of gross deformity full range of motion is noted in the hips and shoulders SKIN: There is no obvious evidence of any rash. Trace pedal edema was noted bilaterally. NEUROLOGIC: Patient is awake alert and oriented x3. Course 1121: Past medical records reviewed. The patient was evaluated in room C4, and a complete history and physical examination were performed. 1318: I checked on the patient and updated her on her results. 1326: I reviewed the patient's case with Dr. Morrissey - Jordan, Juarez Anne. Dr. Morrissey will evaluate the patient for further management. Consultations Consultation #1: I reviewed the patient's case with Dr. Morrissey - Jordan, Juarez Anne. Dr. Morrissey will evaluate the patient for further management. Time: 13:26 Administered Medications Apixaban (Eliquis) 5 mg PO BID OTF Stop: 05/04/18 20:59 Last Admin: 04/04/18 17:57 Dose: 5 mg Digoxin (Lanoxin) 0.25 mg PO DAILY@1600 OTF Stop: 05/04/18 17:59 Last Admin: 04/04/18 17:56 Dose: 0.25 mg Sotalol HCl (Betapace) 240 mg PO BID OTF Stop: 05/04/18 20:59 Last Admin: 04/04/18 18:31 Dose: 240 mg Discontinued Medications Sodium Chloride (Nss) 500 mls @ 999 mls/hr IV .Q31M OTF Stop: 04/04/18 12:00 Last Infusion: 04/04/18 12:51 Dose: 0 mls/hr Admin: 04/04/18 11:51 Dose: 999 mls/hr Medical Decision Making Differential Diagnosis Differential diagnosis: Etiologies such as premature contractions, electrolyte abnormality, cardiac dysrhythmia, thyroid dysfunction, pulmonary embolism, infection, gastrointestinal, as well as others were entertained. Medical Records Attestation: I reviewed the patient's medical records. Home Medications Current Medication List: was personally reviewed by me Laboratory Data Attestation: I reviewed the patient's lab results. Result diagrams: 04/04/18 11:15 04/04/18 11:15 Lab Results 04/04/18 04/04/18 04/04/18 Range/Units 11:15 11:15 11:15 WBC 7.36 (4.8-10.8) K/uL RBC 4.15 L (4.2-5.4) M/uL Hgb 13.4 (12.0-16.0) g/dL Hct 40.6 (37-47) % MCV 97.8 (80-100) fL MCH 32.3 (25-34) pg MCHC 33.0 (32-36) g/dL RDW Std Deviation 51.6 H (36.4-46.3) fL RDW Coeff of Bret 14.5 (11.5-14.5) % Plt Count 267 (130-400) K/uL MPV 10.9 H (7.4-10.4) fL Immature Gran % (Auto) 0.3 % Neut % (Auto) 73.3 % Lymph % (Auto) 13.6 % Story % (Auto) 10.2 % Eos % (Auto) 2.2 % Baso % (Auto) 0.4 % Immature Gran # (Auto) 0.02 (0.00-0.02) K/uL Neut # (Auto) 5.40 (1.4-6.5) K/uL Lymph # (Auto) 1.00 L (1.2-3.4) K/uL Story # (Auto) 0.75 H (0.11-0.59) K/uL Eos # (Auto) 0.16 (0-0.5) K/uL Baso # (Auto) 0.03 (0-0.2) K/uL PT 11.0 (9.0-12.0) Seconds INR 1.1 (0.9-1.1) APTT 30.1 (21.0-31.0) Seconds PTT Ratio 1.2 Sodium 136 (136-145) mmol/L Potassium 3.9 (3.5-5.1) mmol/L Chloride 103 (98-107) mmol/L Carbon Dioxide 31 (21-32) mmol/L Anion Gap 2.0 L (3-11) BUN 20 H (7-18) mg/dl Creatinine 0.89 (0.6-1.2) mg/dl Est Cr Clr Drug Dosing 70.3 ml/min Est GFR ( Amer) 75.6 Est GFR (Non-Af Amer) 65.2 BUN/Creatinine Ratio 22.2 H (10-20) Glucose 107 H (70-99) mg/dl Calcium 8.9 (8.5-10.1) mg/dl Magnesium 1.9 (1.8-2.4) mg/dl Total Bilirubin 0.8 (0.2-1) mg/dl AST 14 L (15-37) U/L ALT 21 (12-78) U/L Alkaline Phosphatase 61 (45-117) U/L Troponin I < 0.015 (0-0.045) ng/ml Total Protein 7.4 (6.4-8.2) gm/dl Albumin 3.5 (3.4-5.0) gm/dl Globulin 3.9 (2.5-4.0) gm/dl Albumin/Globulin Ratio 0.9 (0.9-2) TSH 2.970 (0.300-4.500) uIu/ml Urine Color Urine Appearance (Clear) Urine pH (4.5-7.5) Ur Specific Troy (1.000-1.030) Urine Protein (Negative) Urine Glucose (UA) (Negative) Urine Ketones (Negative) Urine Blood (Negative) Urine Nitrite (Negative) Urine Bilirubin (Negative) Urine Urobilinogen (Negative) Ur Leukocyte Esterase (Negative) Urine WBC (Auto) (0-5) /hpf Urine RBC (Auto) (0-4) /hpf U Hyaline Cast (Auto) (0-5) /lpf U Epithel Cells (Auto) (0-5) /lpf Urine Bacteria (Auto) (Negative) Digoxin (0.8-2.0) ng/ml 04/04/18 04/04/18 Range/Units 11:15 12:30 WBC (4.8-10.8) K/uL RBC (4.2-5.4) M/uL Hgb (12.0-16.0) g/dL Hct (37-47) % MCV (80-100) fL MCH (25-34) pg MCHC (32-36) g/dL RDW Std Deviation (36.4-46.3) fL RDW Coeff of Bret (11.5-14.5) % Plt Count (130-400) K/uL MPV (7.4-10.4) fL Immature Gran % (Auto) % Neut % (Auto) % Lymph % (Auto) % Story % (Auto) % Eos % (Auto) % Baso % (Auto) % Immature Gran # (Auto) (0.00-0.02) K/uL Neut # (Auto) (1.4-6.5) K/uL Lymph # (Auto) (1.2-3.4) K/uL Story # (Auto) (0.11-0.59) K/uL Eos # (Auto) (0-0.5) K/uL Baso # (Auto) (0-0.2) K/uL PT (9.0-12.0) Seconds INR (0.9-1.1) APTT (21.0-31.0) Seconds PTT Ratio Sodium (136-145) mmol/L Potassium (3.5-5.1) mmol/L Chloride (98-107) mmol/L Carbon Dioxide (21-32) mmol/L Anion Gap (3-11) BUN (7-18) mg/dl Creatinine (0.6-1.2) mg/dl Est Cr Clr Drug Dosing ml/min Est GFR ( Amer) Est GFR (Non-Af Amer) BUN/Creatinine Ratio (10-20) Glucose (70-99) mg/dl Calcium (8.5-10.1) mg/dl Magnesium (1.8-2.4) mg/dl Total Bilirubin (0.2-1) mg/dl AST (15-37) U/L ALT (12-78) U/L Alkaline Phosphatase (45-117) U/L Troponin I (0-0.045) ng/ml Total Protein (6.4-8.2) gm/dl Albumin (3.4-5.0) gm/dl Globulin (2.5-4.0) gm/dl Albumin/Globulin Ratio (0.9-2) TSH (0.300-4.500) uIu/ml Urine Color Yellow Urine Appearance Clear (Clear) Urine pH 7.5 (4.5-7.5) Ur Specific [place] 1.010 (1.000-1.030) Urine Protein Negative (Negative) Urine Glucose (UA) Negative (Negative) Urine Ketones Negative (Negative) Urine Blood Negative (Negative) Urine Nitrite Negative (Negative) Urine Bilirubin Negative (Negative) Urine Urobilinogen Negative (Negative) Ur Leukocyte Esterase Trace H (Negative) Urine WBC (Auto) 1-5 (0-5) /hpf Urine RBC (Auto) 0-4 (0-4) /hpf U Hyaline Cast (Auto) 0 (0-5) /lpf U Epithel Cells (Auto) 10-20 H (0-5) /lpf Urine Bacteria (Auto) Negative (Negative) Digoxin 1.0 (0.8-2.0) ng/ml Imaging Data Radiologist's Impression: Radiology results as stated below per my review and the radiologist's interpretation: SINGLE VIEW CHEST CLINICAL HISTORY: Generalized weakness. FINDINGS: An AP, portable, upright chest radiograph is compared to study dated 01/25/2018 and correlated with chest CT dated 05/04/2010. The heart is enlarged and there is atherosclerotic calcification of the thoracic aorta. The pulmonary vasculature is noncongested. Chronic interstitial thickening is similar to previous. Mild bibasilar scarring/atelectasis is observed. No airspace consolidation or large pleural effusion is identified. No pneumothorax is seen. The skeletal structures are osteopenic. The bony thorax is grossly intact. IMPRESSION: Cardiomegaly with no active disease in the chest. Electronically signed by: Enrike Pena M.D. 04/04/2018 11:46 AM ECG Data Attestation: I personally reviewed and interpreted this ECG as follows: Indication: other (arrhythmia) Rate (beats per minute): 47 Rhythm: sinus bradycardia Findings: + T-wave inversion (anterior); no ectopy Comparison ECG Date: from (01/28/18) Change: no significant change Blood Pressure Blood Pressure Findings: Elevated blood pressure Blood Pressure Disposition: further management by hospitalist [facility] Narrative The patient is a 73-year-old female who presented to the emergency department for an evaluation of dizziness and near syncope. The patient was recently started on a calcium channel samantha. She had similar episodes to this when she has been started on calcium channel blockers in the past. The patient presented to the emergency department with bradycardia and near syncope. She had intermittent episodes of dizziness. During one episode her pulse rate dropped into the 20s but returned quickly. I discussed the patient's laboratory and radiographic studies with her. She was treated with a small fluid bolus in the emergency department. Given her other medications that she takes including sotalol and digoxin I was unsure if this bradycardia would resolve with just holding the calcium channel samantha. For this reason I discussed her case with the on-call [facility] [place] hospitalist. They have agreed to evaluate the patient in the emergency department for further management and disposition. Impression & Plan Symptomatic bradycardia, Medication reaction, Near syncope Discharge Plan Visit Data *Final* Discharge Date/Time: 04/04/18 15:51 Chief Complaint: Arrhythmia/Palpitations Stated Complaint: A-FIB, NEW MEDS CAUSING HER TO BLACK OUT ED Provider: Noah Marie Discharge Problem: Symptomatic bradycardia, Medication reaction, Near syncope Patient Disposition: Admitted As Inpatient Discharge Instructions Interventions: ED Discharge Assessment Last Done: 04/04/18 15:51 The scribe's documentation has been prepared under my direction and personally reviewed by me in its entirety. I confirm that the note above accurately reflects all work, treatment, procedures, and medical decision making performed by me.
[2018-04-04 11:38] LABS: INR 1.1 (0.9-1.1); Partial Thromboplastin Ratio 1.2; Partial Thromboplastin Time 30.1 Seconds (21.0-31.0)
[2018-04-04 11:45] LABS: Alanine Aminotransferase 21 U/L (12-78); Albumin Level 3.5 gm/dl (3.4-5.0); Aspartate Aminotransferase 14 U/L (15-37); BUN Creatinine Ratio 22.2 (10-20); Blood Urea Nitrogen 20 mg/dl (7-18); Calcium 8.9 mg/dl (8.5-10.1); Carbon Dioxide 31 mmol/L (21-32); Chloride 103 mmol/L (98-107); Creatinine Clr Calc Pharmacy 70.3 ml/min; Est GFR (African American) 75.6; Est GFR (Non-African American) 65.2; Glucose 107 mg/dl (70-99); Magnesium 1.9 mg/dl (1.8-2.4); Potassium 3.9 mmol/L (3.5-5.1); Sodium 136 mmol/L (136-145)
--- NOTE | 2018-04-04 11:47 | XRay Report ---
SINGLE VIEW CHEST CLINICAL HISTORY: Generalized weakness. FINDINGS: An AP, portable, upright chest radiograph is compared to study dated 01/25/2018 and correlat ed with chest CT dated 05/04/2010. The heart is enlarged and there is atherosclerotic calcification of the thoracic aorta. The pulmonary vasculature is noncongested. Chronic interstitial thickening is si milar to previous. Mild bibasilar scarring/atelectasis is observed. No airspace consolidation or larg e pleural effusion is identified. No pneumothorax is seen. The skeletal structures are osteopenic. Th e bony thorax is grossly intact. IMPRESSION: Cardiomegaly with no active disease in the chest. Electronically signed by: Enrike Pena M.D. 04/04/2018 11:46 AM
[2018-04-04 11:56] LABS: Albumin Globulin Ratio 0.9 (0.9-2); Alkaline Phosphatase 61 U/L (45-117); Bilirubin,Total 0.8 mg/dl (0.2-1); Globulin 3.9 gm/dl (2.5-4.0); Total Protein 7.4 gm/dl (6.4-8.2); Troponin I < 0.015 ng/ml (0-0.045)
[2018-04-04 12:50] LABS: Appearance Urine Clear (Clear); Bacteria Urine Automated Negative (Negative); Bilirubin Urine Negative (Negative); Cast Urine Automated 0 /lpf (0-5); Color Urine Yellow; Glucose Urine UA Negative (Negative); Ketones Urine Negative (Negative); Leukocyte Esterase Urine Trace (Negative); Nitrite Urine Negative (Negative); Protein Urine Negative (Negative); Urobilinogen Urine Negative (Negative); pH Urine 7.5 (4.5-7.5)
--- NOTE | 2018-04-04 15:43 | History & Physical Report ---
Date of Service April 04, 2018 Assessment & Plan (1) Atrial fibrillation: Paroxsymal afib, cardioverted on 01/28/[address] Haskins. Per patient, she felt she switched into afib about 2 weeks later which lasted about a week, then switched back to sinus, then back to atrial fib on Friday (04/03). She was prescribed the diltiazem 30mg PO Q8h PRN while in afib, and reports that she did ok with it the first time she was in afib, but this time, has felt lightheaded & vertigo with both doses this time (took it last night and this morning). However, I have some concern about giving the patient a PRN medication for her afib as she reports "she can't bear the thought of having her HR over 100." to me and becomes very tearful. I'm a bit worried she's using her HR as a surrogate for afib, and possibly taking the diltiazem even when she' s in sinus rhythm. In the ED, HR went down to the 20s, and she had taken her diltiazem this morning. - Hold diltiazem - Continue digoxin & sotalol - Telemetry - Monitor BP with her bradycardia (still currently in the 40-50 range) - Cardiology consult - Continue apixaban (2) Symptomatic bradycardia: Likely due to medications. - See above plan (3) HTN (hypertension): Unclear what her BP was when HR was in the 20s, but even with HR in the 40 -50 range, her BP remains 140/55. When her BP was 160/60 while speaking with me in the ED, the patient became very tearful that it was too high, but we discussed our leniency in the hospital, and I assured her her risk of acute complication was minimal. - Continue home meds for HTN - Monitor BP (4) Asthma: No wheezing on exam or concern for exacerbation. - Continue home inhaler (patient may want to bring in her own) - DuoNebs PRN (5) GERD (gastroesophageal reflux disease): No symptoms presently. 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 In remission. - No inpatient needs (7) Anxiety: Tearful, anxious affect during our discussion. I feel her anxiety is playing a role in her using meds for her heart rate (see above). - Continue home lorazepam PRN (8) DVT prophylaxis: On apixaban for afib History of Present Illness Primary Care Provider: Irma Cristina MD 73yo F w/ hx of paroxsymal afib who presents for episodes of presyncope/vertigo and bradycardia. Per patient, she was cardioverted in 01/[address] Haskins and remained in sinus rhythm for about 2 weeks. She then felt herself go back into afib. She reports that she knows she goes into afib because her Fitbit shows her HR jumping up to the low 100 range (like up to 110) and the high 90s. She reports she spoke with Dr. Palm's office about the atrial fib, but could not get an appointment. Instead Jefry Parkeler called in a prescription for diltiazem 30 mg p.o. every 8 hours as needed while in A. fib. She reports that she took this for approximately 1 week. One day she felt an episode of this vertigo and then popped into sinus rhythm. She remained in sinus for several days, but felt she flipped to A. fib again yesterday. However, when she took her 2 doses of diltiazem this time, both times she felt lightheaded, dizzy, and vertiginous. In the ED, she was noted to have a heart rate in the 80s on check-in, but then dropped as low as 20 bpm on monitor during another episode of dizziness. However , her HR on EKG on admission was in sinus bradycardia, not atrial fibrillation. When asked about she tells between sinus and afib, she becomes very tearful and says that she gets anxious and just knows. Allergies Allergy/AdvReac Type Severity Reaction Status Date / Time diphenhydramine Allergy Mild Dry mouth Verified 04/04/18 11:48 makes it hard to breathe doxycycline Allergy Mild GI Verified 04/04/18 11:48 Intolerance Perfume AdvReac Intermediate Asthma Uncoded 04/04/18 11:48 Home Medications Home Medications Medication Instructions Recorded Confirmed Type albuterol sulfate 2 puff INHALATION QID PRN 01/25/18 04/04/18 History cholecalciferol (vitamin D3) 5,000 unit PO DAILY 12/02/18 02/09/19 History [Vitamin D3] coenzyme Q10 200 mg PO QAM 01/25/18 04/04/18 History cyanocobalamin (vitamin B-12) 1,000 mcg PO QAM 01/25/18 04/04/18 History [Vitamin B-12] digoxin 250 mg PO QPM 01/25/18 04/04/18 History lactobacillus combination no.4 2 cap PO QAM 01/25/18 04/04/18 History [Probiotic] levalbuterol HCl 3 ml INHALATION Q6H PRN 01/25/18 04/04/18 History lorazepam 0.5 mg PO BID PRN 01/25/18 04/04/18 History montelukast 10 mg PO HS 01/25/18 04/04/18 History pantoprazole 40 mg PO QAM 01/25/18 04/04/18 History potassium 99 mg PO QAM 01/25/18 04/04/18 History psyllium husk [Fiber Laxative 0.52 g PO QAM 01/25/18 04/04/18 History (psyllium husk)] sotalol 240 mg PO BID 01/25/18 04/04/18 History triamterene-hydrochlorothiazid 1 tab PO QAM 01/25/18 04/04/18 History turmeric 400 mg PO QAM 01/25/18 04/04/18 History apixaban 5 mg tablet 5 mg PO BID 03/10/18 04/04/18 History azelastine 137 mcg (0.1 %) nasal 1 spray INTRANASAL DAILY 03/10/18 04/04/18 History spray aerosol budesonide-formoterol HFA 160 2 puffs INH BID 03/10/18 04/04/18 History mcg-4.5 mcg/actuation aerosol inhaler losartan 50 mg tablet 50 mg PO QAM tab 03/10/18 04/04/18 History magnesium citrate 100 mg tablet 600 mg PO DAILY tab 03/10/18 04/04/18 History mupirocin 2 % topical ointment 1 appln TOP BID 03/10/18 04/04/18 History omega-3 fatty acids 1,000 mg 2,000 mg PO DAILY cap 03/10/18 04/04/18 History capsule diltiazem HCl 30 mg PO DAILY 02/09/19 02/09/19 History Past Med/Surg History Medical History Asthma (Chronic) Anxiety (Chronic) HTN (hypertension) (Chronic) Atrial fibrillation (Acute) Supraventricular premature beats (Acute) Endometrioid adenocarcinoma of uterus (Acute 08/21/17) Status post endometrial biopsy August 21, 2017 Status post SI assisted robotic laparoscopic hysterectomy, RSO, right pelvic lymphadenectomy and bilateral periaortic lymph node sampling September 18, 2017 Status post completion of radiation therapy, completed 11/07/2017. Atrial flutter Atypical, symptomatic, well-controlled ventricular response. GERD (gastroesophageal reflux disease) History of cardioversion 2016. [facility]termin[employer] current use of anticoagulant Morbid obesity CHRISTOPHER (obstructive sleep apnea) 2015 study = "mild," pt refused treatment Tinnitus Surgical History H/O: hysterectomy with RSO and lymph node sampling History of mandibular surgery Hx of colonoscopy Hx of laparoscopy REMOVAL OF LSO Hx of lipoma RIGHT HIP REMOVAL OF LIPOMA Hx of tooth extraction Family History Sister A-fib Social History marital status: Current Living Situation: Family current occupational status: employed Feels Safe at Home: Yes Smoking Status: Never smoker Second Hand Exposure: No Hx Alcohol Use: No Hx Substance Use: No Beliefs That Will Affect Care: None Preferred Language: Kyrgyz Review of Systems Constitutional: no fever, no chills and no sweats Eyes: no diplopia Ear, Nose, Mouth, Throat: no ear trauma, no nasal discharge and no dental pain Respiratory: no cough, no chest congestion and no dyspnea Cardiovascular: no chest pain, no dyspnea on exertion, no palpitations, no syncope and no edema Gastrointestinal: no abdominal pain, no belching, no constipation, no diarrhea/ loose stools, no blood in stools and no melena Musculoskeletal: no back pain, no joint pain and no muscle weakness Integumentary: no rash, no skin ulcer and no erythema Neurologic: no generalized weakness, no loss of sensation, no numbness and no paresthesia Psychiatric: no depression and no anxiety Endocrine: no fatigue, no polydipsia and no polyphagia Physical Exam 2 Vital Signs (Past 24 Hours): Last Vital Signs Temp 36.7 C 04/04/18 10:40 Pulse 46 L 04/04/18 15:01 Resp 16 04/04/18 15:01 BP 140/55 L 04/04/18 15:01 Pulse Ox 97 04/04/18 15:01 Constitutional: WD/WN, vitals as above Eyes: EOM intact bilaterally; no conjunctival abnormality ENMT: external ear and nose normal, oropharynx normal Neck: trachea midline, no thyromegaly normal visual inspection Respiratory: normal respiratory effort, lungs clear to auscultation no respiratory distress Cardiovascular: Rate/Rhythm: regular rhythm and + bradycardic Heart Sounds : normal S1 and normal S2 Vessels: no JVD Extremities: no edema Gastrointestinal (Abdomen): Inspection/Auscultation: abdomen normal to inspection; abdomen not distended Musculoskeletal: no cyanosis or clubbing, extremities motor strength 5/5 Skin: no rashes, warm and dry Neurologic: moves all extremities and awake Psychiatric: Orientation: alert, oriented to person and cooperative _ (1) Atrial fibrillation Atrial fibrillation type: paroxysmal Qualified Code(s): I48.0 - Paroxysmal atrial fibrillation
[2018-04-04] MEDS ORDERED: ALBUT/IPRATROP 3MG/0.5MG NEB 3 ML VIAL NEB PRN (16:10)
[2018-04-04] MEDS ORDERED: ACETAMINOPHEN 325 MG TAB PO PRN (16:10)
[2018-04-04] MEDS: DIGOXIN 0.25 MG TAB PO SCH (17:56)
[2018-04-04] MEDS: APIXABAN 5 MG TABLET PO SCH (17:57)
[2018-04-04] MEDS: SOTALOL HCL 80 MG TAB PO SCH (18:31)
[2018-04-04] MEDS ORDERED: POTASSIUM CHLORIDE 10 MEQ TABCR PO STA (19:02)
[2018-04-04] MEDS: BUDESONIDE/FORMOTEROL FUMARATE 160/4.5 60 PUFFS/INHALER INH SCH (21:45)
[2018-04-04] MEDS: LORazepam 0.5 MG TAB PO PRN (21:45)
[2018-04-04] MEDS: MONTELUKAST SODIUM 10 MG TABLET PO SCH (21:46)
[2018-04-05 06:35] LABS: Hemoglobin 11.4 g/dL (12.0-16.0); Mean Corpuscular Hgb Conc 32.6 g/dL (32-36); Mean Corpuscular Volume 97.2 fL (80-100); Mean Platelet Volume 10.8 fL (7.4-10.4); Platelet Count 232 K/uL (130-400); RDW Coefficient of Variation 14.8 % (11.5-14.5); RDW Standard Deviation 52.9 fL (36.4-46.3); White Blood Count 7.75 K/uL (4.8-10.8)
[2018-04-05 07:10] LABS: BUN Creatinine Ratio 25.3 (10-20); Calcium 9.1 mg/dl (8.5-10.1); Est GFR (Non-African American) 74.2; Magnesium 1.9 mg/dl (1.8-2.4)
[2018-04-05] MEDS: SOTALOL HCL 80 MG TAB PO SCH (08:28)
[2018-04-05] MEDS: LOSARTAN POTASSIUM 50 MG TAB PO SCH (08:29)
[2018-04-05] MEDS: PSYLLIUM 58.6% POWDER PACKET PO SCH (08:29)
[2018-04-05] MEDS: TRIAMTERENE/HCTZ 37.5/25MG TAB PO SCH (08:29)
[2018-04-05] MEDS: APIXABAN 5 MG TABLET PO SCH (08:29)
[2018-04-05] MEDS: PANTOprazole 40 MG TAB PO SCH (08:30)
[2018-04-05] MEDS: BUDESONIDE/FORMOTEROL FUMARATE 160/4.5 60 PUFFS/INHALER INH SCH ×2 (08:30→20:47)
[2018-04-05] MEDS ORDERED: NON-FORMULARY MEDICATION (Potassium [Potassium] 99 MG) PO SCH (09:00)
--- NOTE | 2018-04-05 09:22 | Cardiology Consultation ---
Date of Consultation April 05, 2018 Assessment & Plan (1) Atrial fibrillation: She has had recurrent atrial fibrillation, although sometimes she is not aware of her arrhythmia where she feels she is in atrial fibrillation and is not but I suspect she was she has been fairly accurate lately and even last evening in the hospital she had a brief episode that she was aware of. I discussed with her on multiple occasions possible treatment options but she has been undecided and today she was tearful and had difficulty deciding as well. The options are to leave things as they are (which is not a very good option as her atrial fibrillation is rapid and we cannot put her on higher doses of rate control medications due to bradycardia), placing a pacemaker and increasing her rate control medications, using a different antiarrhythmic (Tikosyn or amiodarone) or consider atrial fibrillation ablation. She cannot decide between these options at the moment. I am going to discontinue the sotalol which is working very well, giving us the option of starting Tikosyn tomorrow if she would like to. I do not want to overlap it by starting it today. (2) Sinus bradycardia: She has sinus bradycardia and rapid atrial fibrillation consistent with sick sinus syndrome. Sinus bradycardia may well be medication related however we need medications to control her rate during atrial fibrillation. Her heart rate is often in the 40s, it is reported to be in the 20s but I do not see rhythm strips showing that degree of sinus bradycardia although it is possible that it was transient and might explain her transient lightheaded symptoms. (3) Anticoagulant long-term use: She is on Eliquis as an outpatient, she needs to continue this over the long run. We may need to implant a pacemaker if she goes that route therefore I am going to hold it for now. History of Present Illness Reason for Consultation: Atrial fibrillation, bradycardia Attending Physician: Tim Roman, DO History of Present Illness This is a very pleasant 73-year-old woman who reports that she has had a history of palpitations for most of her life. However she feels that they have increased in severity over the last several years, she feels that is due to an increase in anxiety that she has experienced over that time frame. She is a little bit imprecise about it. She describes the palpitations in terms of anxiety, however she also describes an occasional fluttering in her chest which she feels is different than an extra heartbeat that she has been told she has. She has periods of time when she feels very anxious, predominantly at work or thinking about work, and this goes back quite a few years. She did present to the emergency room a number of years ago with a funny feeling in her head at work and a feeling of anxiety and apparently that diagnosis was made. She then reported again to the emergency room on May 03, 2013, that also was due to an episode of anxiety at work, not much in the way of palpitations although possibly she felt that fluttering sensation in her chest. In the emergency room her electrocardiogram and rhythm strips were unremarkable. In addition to the palpitations associated with anxiety she has had a "shaking" feeling in her chest on one occasion, this occurred after lunch and lasted for about two and half hours. I can't tell if this might have been a different type of arrhythmia, she does not think so. She also has a lot of other symptoms such as diaphoresis, transient vertigo, nausea which occurred during her times of anxiety and are not clearly heart rate related. She feels that she had recurrent atrial fibrillation, she was prescribed diltiazem 30 mg every 8 hours to take as needed and noted some lightheadedness and dizziness associated with taking the medication. She therefore came to the emergency room, she was noted to be bradycardic and she was admitted. She was in sinus rhythm rather in atrial fibrillation, however did of atrial fibrillation during the night which she was aware of. Today she is tearful but otherwise feels well and remains somewhat bradycardic. She did have a Holter monitor performed May 08, 2013, it was not terribly abnormal but she did have some PAT of up to nine beats identified and she reported two episodes of palpitations which seem to correlate with PACs. She had an echocardiogram done May 14, 2013 which showed mild left ventricular hypertrophy, mild biatrial enlargement but normal left ventricular size and function. She was initially on atenolol 50 mg daily for her palpitations but that was not working to suppress her symptoms and I was concerned about going higher due to her history of asthma. I switched her to Bystolic 10 mg daily, and that seemed to have helped considerably. Her drug plan however will not cover that and we needed to try some other agent. I started her on metoprolol succinate 50 mg daily, initially that seemed to help but then she had an episode of palpitations which sounds like it could've been a somewhat sustained arrhythmia and at that time she took her blood pressure and heart rate and her heart rate was 144 bpm. This evidently lasted several hours. We therefore increased the metoprolol to 100 mg daily with an improvement in her symptoms. With recurrent symptoms we did increase that subsequently to 150 mg daily. She was on a combination of metoprolol, and Dyazide but was also quite hypertensive, therefore losartan was added but she developed mild renal insufficiency and her Dyazide was discontinued. Repeat blood tests suggested normalization of her renal function. On 06/11/2014 she awoke feeling fatigued and feeling palpitations, she had little bit of lightheadedness. She sat down and waited a number of hours but the symptoms continued, she therefore went into the emergency room. An electrocardiogram in the emergency room did confirm atrial fibrillation with a heart rate of 129 bpm. While in the emergency room, without treatment, her arrhythmia converted. She was probably in atrial fibrillation for at least 5 hours, possibly longer since we don't know when it started. This is the first time we had documented her sustained arrhythmia. With documentation of prolonged atrial fibrillation with a rapid heart rate I did increase her metoprolol to 150 mg daily to help control heart rate and added eliquis 5 mg twice daily on 06/15/2014. She did have several episodes where she woke up in the morning in atrial fibrillation. One of these episodes was on 12/27/2014 in the other was 2014. Both lasted about 2 hours and she took her heart rate which was about 124 bpm. She continued to have episodes on increased beta-blockade and therefore sotalol was added on March 01, 2015, with continued episodes her morning dose was increased on March 20 2015. She had 2 episodes which she did not recognize his atrial fibrillation, one occurred around April 2015 and lasted several hours and another occurred on 06/07/2015 and lasted about 3 hours. During these episodes she felt a "sinking feeling" as though her "energy was draining away". She was not presyncopal and did not have palpitations. On both occasions she checked her heart rate and her blood pressure and told me her blood pressure was normal and her heart rate was about 63. She is not able to determine whether the rhythm was irregular or not. She then presented 10/02/2016 with more sustained palpitations, at that time she was on sotalol 160 mg a morning and 120 mg in the evening. I increased the dose to 160 mg twice a day however she remained in atrial fibrillation and we therefore arrange cardioversion for 10/07/2016. Initially following cardioversion she felt well and did not have recurrence of her arrhythmia for several months. However she noticed the development of atrial fibrillation at around 12:30 midnight on the night of December 22 2016, she noticed that when she got up to go to the bathroom. That continued the next morning and at around 8 PM she noticed her heart rate was somewhat fast and she felt uncomfortable ( although was not dizzy or presyncopal) and came into the emergency room. There she was noted to be in atrial fibrillation with a heart rate of 120 bpm by electrocardiography. She was treated with intravenous diltiazem and she had spontaneous conversion to sinus rhythm. She was therefore sent home with no change in her medical regimen. With recurrence of her atrial fibrillation we increased her sotalol to 240 mg twice a day on 12/24/2016. An electrocardiogram done several days later showed sinus bradycardia but no T-wave abnormalities. Digoxin 0.125 mg daily was started on March 03, 2017, subsequently increased to 0.25 mg daily. She was identified as having uterine cancer and she had a hysterectomy September 18, 2017 and had radiation therapy subsequently. She feels that it was contained. She returned to atrial fibrillation, she remained in it for several days and therefore had cardioversion on January 28, 2018. Allergies Allergy/AdvReac Type Severity Reaction Status Date / Time diphenhydramine Allergy Mild Dry mouth Verified 04/04/18 11:48 makes it hard to breathe doxycycline Allergy Mild GI Verified 04/04/18 11:48 Intolerance Perfume AdvReac Intermediate Asthma Uncoded 04/04/18 11:48 Home Medications Home Medications Medication Instructions Recorded Confirmed Type albuterol sulfate 2 puff INHALATION QID PRN 01/25/18 04/04/18 History cholecalciferol (vitamin D3) 5,000 unit PO DAILY 01/25/18 04/04/18 History [Vitamin D3] coenzyme Q10 200 mg PO QAM 01/25/18 04/04/18 History cyanocobalamin (vitamin B-12) 1,000 mcg PO QAM 01/25/18 04/04/18 History [Vitamin B-12] digoxin 250 mcg PO QPM 01/25/18 04/04/18 History lactobacillus combination no.4 2 cap PO QAM 01/25/18 04/04/18 History [Probiotic] levalbuterol HCl 3 ml INHALATION Q6H PRN 01/25/18 04/04/18 History lorazepam 0.5 mg PO BID PRN 01/25/18 04/04/18 History montelukast 10 mg PO HS 01/25/18 04/04/18 History pantoprazole 40 mg PO QAM 01/25/18 04/04/18 History potassium 99 mg PO QAM 01/25/18 04/04/18 History psyllium husk [Fiber Laxative 0.52 g PO QAM 01/25/18 04/04/18 History (psyllium husk)] sotalol 240 mg PO BID 01/25/18 04/04/18 History triamterene-hydrochlorothiazid 1 tab PO QAM 01/25/18 04/04/18 History turmeric 400 mg PO QAM 01/25/18 04/04/18 History apixaban 5 mg tablet 5 mg PO BID 03/10/18 04/04/18 History azelastine 137 mcg (0.1 %) nasal 1 spray INTRANASAL DAILY 03/10/18 04/04/18 History spray aerosol budesonide-formoterol HFA 160 2 puffs INH BID 03/10/18 04/04/18 History mcg-4.5 mcg/actuation aerosol inhaler losartan 50 mg tablet 50 mg PO QAM tab 03/10/18 04/04/18 History magnesium citrate 100 mg tablet 600 mg PO DAILY tab 03/10/18 04/04/18 History mupirocin 2 % topical ointment 1 appln TOP BID 03/10/18 04/04/18 History omega-3 fatty acids 1,000 mg 2,000 mg PO DAILY cap 03/10/18 04/04/18 History capsule diltiazem HCl 30 mg PO DAILY 04/04/18 04/04/18 History Patient History Medical History Asthma (Chronic) Anxiety (Chronic) HTN (hypertension) (Chronic) Atrial fibrillation (Acute) Supraventricular premature beats (Acute) Endometrioid adenocarcinoma of uterus (Acute 08/21/17) Status post endometrial biopsy August 21, 2017 Status post SI assisted robotic laparoscopic hysterectomy, RSO, right pelvic lymphadenectomy and bilateral periaortic lymph node sampling September 18, 2017 Status post completion of radiation therapy, completed 11/07/2017. Atrial flutter Atypical, symptomatic, well-controlled ventricular response. GERD (gastroesophageal reflux disease) History of cardioversion 2016. [facility] current use of anticoagulant Morbid obesity CHRISTOPHER (obstructive sleep apnea) 2015 study = "mild," pt refused treatment Tinnitus Surgical History H/O: hysterectomy with RSO and lymph node sampling History of mandibular surgery Hx of colonoscopy Hx of laparoscopy REMOVAL OF LSO Hx of lipoma RIGHT HIP REMOVAL OF LIPOMA Hx of tooth extraction Family History Sister A-fib Social History marital status: Current Living Situation: Family Current Living Situation Comment: with son current occupational status: employed Other Information That Helps Us Care for You: No Feels Safe at Home: Yes Safety Concerns: Feels Safe At This Time Smoking Status: Never smoker Second Hand Exposure: No Hx Alcohol Use: No Hx Substance Use: No Beliefs That Will Affect Care: Buddhist Buddhist Beliefs: confucianism Preferred Language: Amharic Communication Ability: Effective Grab Hooker Required: No Review of Systems Notable for lightheadedness, dizziness, palpitations as described, negative for presyncope or syncope. No exertional symptoms, no dyspnea on exertion or exertional chest pain. No orthopnea or PND or peripheral edema. No GI complaints , no bleeding. No neurologic complaints such as TIA or stroke symptoms. Other systems negative. Physical Exam 2 Vital Signs (Past 24 Hours): Last Vital Signs Temp 36.7 C 04/05/18 07:20 Pulse 61 04/05/18 08:39 Resp 16 04/05/18 07:20 BP 142/60 H 04/05/18 07:20 Pulse Ox 96 04/05/18 07:20 Physical Exam: Constitutional: Alert, cooperative and in no distress. HEENT: Unremarkable Neck: No jugular venous distention, carotid pulses are normal and equal bilaterally without bruits. Pulmonary: Clear to auscultation bilaterally. Cardiac: Regular rhythm with no murmur, gallop or rub. Abdomen: Soft, nontender with normal bowel sounds. Extremities: No edema. Distal pulses intact. Neurologic: No focal findings. Gait is steady. Skin: No rash, ecchymoses or petechiae. Results & Data Diagnostic Findings Telemetry: Predominantly sinus bradycardia, one episode of atrial fibrillation with moderately rapid ventricular response overnight Electrocardiogram on admission: Sinus bradycardia with a heart rate of 47 bpm _ (1) Atrial fibrillation Atrial fibrillation type: paroxysmal Qualified Code(s): I48.0 - Paroxysmal atrial fibrillation
[2018-04-05] MEDS: MAGNESIUM OXIDE 400 MG TAB PO SCH (10:01)
[2018-04-05] MEDS: DIGOXIN 0.25 MG TAB PO SCH (16:38)
--- NOTE | 2018-04-05 19:21 | Hospitalist Progress Note ---
Date of Service April 05, 2018 Assessment & Plan (1) Paroxysmal atrial fibrillation: - H/O cardioversion Jan [address] Haskins but reports she can feel when she converts to A Fib/Sinus - She was then prescribed Diltiazem 30 mg Q8H PRN for when she has faster HRs for A Fib - she then developed lightheadedness and vertigo with the dosing and does report she can't stand her HR being around 100 bpm so likely using this at times that are not necessary -- She tracks this a lot with a Fitbit and did explan that some of these HR monitoring devices can be useful but could easily track PACs/PVCs which could be jumping her HR as she states he HR fluctuations only last a few seconds - she also endorses some anxiety which likely contributes to this - Multiple options to address this were discussed by cardiology - she wan't completely decision when he was in but states to me she is leaning towards Tikosyn - Sotalol was discontinued to allow wash out to anticipating starting Tikosyn - Megan is on hold for now for the chance she would want a pacer but likely will resume in AM when final decision made - Digoxin 0.25 mg daily Present on Admission?: Yes (2) Symptomatic bradycardia: - Given her rapid afib and sinus bradycardia she could easily be considered a sick sinus syndrome but this situation could have been more related to medications as well - She reports her tracking on her Fitbit reveals her baseline HR normally high 40s into 50s - She was reported to be in the 20s in the ED however this was not found on monitor Present on Admission?: Yes (3) HTN (hypertension): - Losartan 50 mg daily Present on Admission?: Yes (4) Asthma: - No exacerbation at this time - Continue inhalers and PRN Duonebs Present on Admission?: Yes (5) GERD (gastroesophageal reflux disease): - Pantoprazole 40 mg daily Present on Admission?: Yes (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 She would likely benefit from an SSRI to help long-term. May be best to await stabilization of Tikosyn before implementing these times of medications given the risk for QT prolongation Present on Admission?: Yes (8) DVT prophylaxis: - Eliquis on hold until pacer is R/Od as option for treatment Disposition: Pt anticipating Tikosyn initiation which will require a couple days of hospitalization for monitoring for adverse effects; will need ordered by cardiology as you must be trained to prescribe this and will have to defer to cardiology Subjective Patient states she is feeling better today compared to yesterday. Had a long discussion about electrical cardiac currents and discussed her fitbit readings. She also has some underlying anxiety and fears that likely are contributing. She had decided to move to [facility] and will require a couple day stay for monitoring Constitutional: no fever and no chills Eyes: no worsening vision Respiratory: no cough and no dyspnea Cardiovascular: + palpitations; no chest pain, no orthopnea and no lightheadedness Gastrointestinal: no abdominal pain, no nausea, no vomiting, no constipation and no diarrhea/loose stools Genitourinary (Female): no dysuria Musculoskeletal: no body aches Integumentary: no rash Physical Exam 2 Vital Signs (Past 24 Hours): Last Vital Signs Temp 36.6 C 04/05/18 15:48 Pulse 66 04/05/18 16:38 Resp 16 04/05/18 15:48 BP 122/52 L 04/05/18 15:48 Pulse Ox 97 04/05/18 15:48 Constitutional: WD/WN, vitals as above Eyes: + anicteric sclerae ENMT: Ears: no hearing impairment Neck: trachea midline Respiratory: normal respiratory effort, lungs clear to auscultation Cardiovascular: RRR, no murmur, no edema Gastrointestinal (Abdomen): Inspection/Auscultation: normal bowel sounds Percussion/Palpation: abdomen soft; abdomen nontender Musculoskeletal: Head/Neck/Chest: normocephalic, head atraumatic and neck supple Skin: no rashes, warm and dry Neurologic: moves all extremities Psychiatric: A+Ox3, euthymic affect
[2018-04-05] MEDS: MONTELUKAST SODIUM 10 MG TABLET PO SCH (20:46)
[2018-04-06] MEDS: TRIAMTERENE/HCTZ 37.5/25MG TAB PO SCH (07:37)
[2018-04-06] MEDS: PANTOprazole 40 MG TAB PO SCH (07:37)
[2018-04-06] MEDS: BUDESONIDE/FORMOTEROL FUMARATE 160/4.5 60 PUFFS/INHALER INH SCH ×2 (07:37→21:00)
[2018-04-06] MEDS: PSYLLIUM 58.6% POWDER PACKET PO SCH (07:37)
[2018-04-06] MEDS: LOSARTAN POTASSIUM 50 MG TAB PO SCH (07:37)
[2018-04-06] MEDS: MAGNESIUM OXIDE 400 MG TAB PO SCH (07:37)
[2018-04-06 08:43] LABS: Hematocrit (blood only) 39.3 % (37-47); Hemoglobin 12.7 g/dL (12.0-16.0); Mean Corpuscular Hgb Conc 32.3 g/dL (32-36); Mean Platelet Volume 11.1 fL (7.4-10.4); Platelet Count 234 K/uL (130-400); RDW Coefficient of Variation 14.7 % (11.5-14.5); RDW Standard Deviation 52.6 fL (36.4-46.3); Red Blood Count 4.01 M/uL (4.2-5.4); White Blood Count 7.98 K/uL (4.8-10.8)
[2018-04-06 08:50] LABS: Prothrombin Time 10.4 Seconds (9.0-12.0)
[2018-04-06 09:29] LABS: BUN Creatinine Ratio 21.1 (10-20); Calcium 9.2 mg/dl (8.5-10.1); Creatinine Clr Calc Pharmacy 68.7 ml/min; Est GFR (African American) 73.6; Est GFR (Non-African American) 63.5; Potassium 3.9 mmol/L (3.5-5.1)
--- NOTE | 2018-04-06 14:29 | Cardiology Progress Note ---
Date of Service April 06, 2018 Assessment & Plan (1) Atrial fibrillation: She has had recurrent atrial fibrillation, generally she is fairly aware of when she is in it, including an episode in the hospital several days ago. I have discussed with her on multiple occasions possible treatment options but she has been undecided. The options are to leave things as they are (which is not a very good option as her atrial fibrillation is rapid and we cannot put her on higher doses of rate control medications due to bradycardia), placing a pacemaker and increasing her rate control medications, using a different antiarrhythmic (Tikosyn or amiodarone) or consider atrial fibrillation ablation. She is willing to give a trial of Tikosyn to see if that works. I had held her sotalol yesterday and therefore we should be able to start Tikosyn today. Her QTc interval is normal today. (2) Sinus bradycardia: She has sinus bradycardia and rapid atrial fibrillation consistent with sick sinus syndrome. Sinus bradycardia may well be medication related however we need medications to control her rate during atrial fibrillation. Her heart rate is often in the 40s, it is reported to be in the 20s but I do not see rhythm strips showing that degree of sinus bradycardia although it is possible that it was transient and might explain her transient lightheaded symptoms. (3) Anticoagulant long-term use: She is on Eliquis as an outpatient, she needs to continue this over the long run. I had held it on admission but I am going to restart it now. Subjective She is currently feeling quite well, she is not aware of any further atrial fibrillation. Physical Exam 2 Vital Signs (Past 24 Hours): Last Vital Signs Temp 36.8 C 04/06/18 11:57 Pulse 79 04/06/18 11:57 Resp 16 04/06/18 11:57 BP 134/63 04/06/18 11:57 Pulse Ox 95 04/06/18 11:57 Physical Exam: Constitutional: Alert, cooperative and in no distress. Pulmonary: Clear to auscultation bilaterally. Cardiac: Regular rhythm with no murmur, gallop or rub. Abdomen: Soft, nontender with normal bowel sounds. Extremities: No edema. Skin: No rash, ecchymoses or petechiae. Results & Data Diagnostic Findings Telemetry: She has remained in sinus rhythm and sinus bradycardia in the past 24 hours. Electrocardiogram today shows sinus rhythm with a normal QT interval. _ (1) Atrial fibrillation Atrial fibrillation type: paroxysmal Qualified Code(s): I48.0 - Paroxysmal atrial fibrillation
--- NOTE | 2018-04-06 14:56 | Hospitalist Progress Note ---
Date of Service April 06, 2018 Assessment & Plan (1) Paroxysmal atrial fibrillation: - H/o cardioversion Jan [address] Haskins; is symptomatic with A. fib. - Was taking CCB at home prn for A. fib but developed vertigo/lightheadedness with medication. - Cardiology consulted, appreciate input. - Discontinued Sotalol on 04/05/18; will start Tikosyn 500 mg q12hr with inpatient monitoring x 3 days. - Continue Digoxin 0.25 mg daily; Dig level was 0.9. - Resume home Eliquis as pt. will not require a procedure. (2) Symptomatic bradycardia: - Has rapid A. fib and sinus bradycardia, may be sick sinus syndrome vs. med induced. - Cannot tolerate BB for A. fib; started Tikosyn as noted above. (3) HTN (hypertension): - Continue Losartan 50 mg daily and Triamterene/HCTZ as prescribed. (4) Asthma: - No exacerbation at this time - Continue Symbicort BID with Duonbs q4hr prn. 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 (7) Anxiety: - Lorazepam 0.5 mg BID PRN - Has uncontrolled anxiety -- she would likely benefit from an SSRI to help long -term. May be best to await stabilization of Tikosyn before implementing these times of medications given the risk for QT prolongation. (8) DVT prophylaxis: - Resume Eliquis as prescribed. Dispo: Start Tikosyn, will need to monitor for 3 days. Will need prescribed by kitchen utility associate at discharge. Supervising Physician Co-Signing Physician Notes Attending Attestation - Chart reviewed in detail, and care plan d/w ROSA Ryder. I agree w/ the coreas components of her documentation. Patient with long-standing a. fib - difficult to control, and patient has been unwilling in the past to take certain meds due to fear of side effects, etc. Appreciate cardiology consultation and recs. Labs and vitals otherwise stable. Luis Ortega MD Subjective Pt. is doing well overall. She is anxious at bedside but otherwise denies specific complaints. Denies chest pain, SOB, N/V. salad bar clerk showed ST changes this morning, EKG was negative. Pt. did not have any active symptoms. Plan to start Tikosyn this afternoon and monitor for 3 days as inpatient. Review of Systems All systems reviewed & are unremarkable except as noted in HPI & below Constitutional: no fever and no chills Respiratory: no cough and no dyspnea Cardiovascular: no chest pain, no palpitations and no edema Gastrointestinal: no abdominal pain, no nausea and no constipation Genitourinary (Female): no difficulty urinating Psychiatric: + anxiety Allergy / Immunological: no rash Physical Exam 2 Vital Signs (Past 24 Hours): Last Vital Signs Temp 36.8 C 04/06/18 11:57 Pulse 79 04/06/18 11:57 Resp 16 04/06/18 11:57 BP 134/63 04/06/18 11:57 Pulse Ox 95 04/06/18 11:57 Physical Exam: General: Resting comfortably in no apparent distress HEENT: NC/AT; PERRLA with EOMI; [place] conjunctiva, MMM. Neck: Supple and nontender Cardiac: RRR w/o murmurs, gallops or rubs Lungs: CTA bilaterally; No rhonchi, wheezing, or rales Abdomen: Bowel normoactive X 4; Nontender to palpation Extremities: Warm. No edema present Neuro: No focal weakness Skin: No rash Results & Data Laboratory Results 04/06/18 04/06/18 04/06/18 Range/Units 08:32 08:32 08:32 WBC 7.98 (4.8-10.8) K/uL RBC 4.01 L (4.2-5.4) M/uL Hgb 12.7 (12.0-16.0) g/dL Hct 39.3 (37-47) % MCV 98.0 (80-100) fL MCH 31.7 (25-34) pg MCHC 32.3 (32-36) g/dL RDW Std Deviation 52.6 H (36.4-46.3) fL RDW Coeff of Bret 14.7 H (11.5-14.5) % Plt Count 234 (130-400) K/uL MPV 11.1 H (7.4-10.4) fL PT 10.4 (9.0-12.0) Seconds INR 1.0 (0.9-1.1) Sodium 140 (136-145) mmol/L Potassium 3.9 (3.5-5.1) mmol/L Chloride 103 (98-107) mmol/L Carbon Dioxide 30 (21-32) mmol/L Anion Gap 7.0 (3-11) BUN 19 H (7-18) mg/dl Creatinine 0.91 (0.6-1.2) mg/dl Est Cr Clr Drug Dosing 68.7 ml/min Est GFR ( Amer) 73.6 Est GFR (Non-Af Amer) 63.5 BUN/Creatinine Ratio 21.1 H (10-20) Glucose 143 H (70-99) mg/dl Calcium 9.2 (8.5-10.1) mg/dl Specimen Hemolysis
[2018-04-06] MEDS: DIGOXIN 0.25 MG TAB PO SCH (16:10)
[2018-04-06] MEDS: TIKOSYN PO SCH (17:49)
[2018-04-06] MEDS: APIXABAN 5 MG TABLET PO SCH (18:25)
[2018-04-06] MEDS: MONTELUKAST SODIUM 10 MG TABLET PO SCH (21:00)
[2018-04-07] MEDS: TIKOSYN PO SCH (06:15)
[2018-04-07 06:30] LABS: Hematocrit (blood only) 35.7 % (37-47); Mean Corpuscular Hgb Conc 33.6 g/dL (32-36); Mean Corpuscular Volume 97.3 fL (80-100); Mean Platelet Volume 10.7 fL (7.4-10.4); Platelet Count 226 K/uL (130-400); RDW Coefficient of Variation 14.5 % (11.5-14.5); RDW Standard Deviation 51.8 fL (36.4-46.3); Red Blood Count 3.67 M/uL (4.2-5.4)
[2018-04-07 06:57] LABS: BUN Creatinine Ratio 20.3 (10-20); Calcium 8.7 mg/dl (8.5-10.1); Creatinine Clr Calc Pharmacy 73.7 ml/min; Est GFR (African American) 79.9; Est GFR (Non-African American) 68.9; Magnesium 1.9 mg/dl (1.8-2.4); Potassium 3.6 mmol/L (3.5-5.1)
[2018-04-07] MEDS: PANTOprazole 40 MG TAB PO SCH (07:30)
[2018-04-07] MEDS: BUDESONIDE/FORMOTEROL FUMARATE 160/4.5 60 PUFFS/INHALER INH SCH ×2 (07:30→20:55)
[2018-04-07] MEDS: MAGNESIUM OXIDE 400 MG TAB PO SCH (07:31)
[2018-04-07] MEDS: TRIAMTERENE/HCTZ 37.5/25MG TAB PO SCH (07:31)
[2018-04-07] MEDS: LOSARTAN POTASSIUM 50 MG TAB PO SCH (07:31)
[2018-04-07] MEDS: PSYLLIUM 58.6% POWDER PACKET PO SCH (07:31)
[2018-04-07] MEDS: APIXABAN 5 MG TABLET PO SCH (08:02)
--- NOTE | 2018-04-07 11:59 | Hospitalist Progress Note ---
Date of Service April 07, 2018 Assessment & Plan (1) Paroxysmal atrial fibrillation: - H/o cardioversion Jan [address] Haskins; is symptomatic with A. fib, was taking CCB prn at home but developed side lightheadedness. - Sinus bradycardia this morning but converted to A. fib with RVR this afternoon , HR 110-140's. - Discontinued Sotalol 04/05/18; started Tikosyn on 04/06/18, will decrease dose to 250 mg q12hr due to prolonged QTc. - Continue Digoxin 0.25 mg PO daily; Dig level was 0.9. - Will hold Eliquis; pt. was agreeable to pacemaker placement, will likely be completed on 04/09/18. - Upgraded to PCU/Telemetry as she may require a drip if A. fib with RVR persists. - Consider Cardizem PO vs. drip for ongoing A. fib with RVR; will monitor closely for now. (2) Symptomatic bradycardia: - Has rapid A. fib and sinus bradycardia, may be sick sinus syndrome vs. med induced. - Was bradycardic on monitor this morning, now with A. fib with RVR at 110-140' s. - Plan for pacemaker placement on 04/09/18 per cardiology as pt. cannot tolerate beta blockade at this point. (3) ST segment changes on electrocardiogram: - EKG showed ST segment depression. - Denies cardiac symptoms with exception of chest pain related to anxiety. - Trop pending; will repeat q6hr x 2. - Cardiology following, EKG changes may be related to Digoxin. (4) HTN (hypertension): - Continue Losartan 50 mg daily and Triamterene/HCTZ as prescribed. - BP is well controlled. (5) Asthma: - No exacerbation at this time - Continue Symbicort BID with Duonbs q4hr prn. 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 (8) Anxiety: - Lorazepam 0.5 mg BID PRN - Has uncontrolled anxiety -- she would likely benefit from an SSRI to help long -term. May be best to await stabilization of Tikosyn before implementing these times of medications given the risk for QT prolongation. (9) Electrolyte abnormality: - Maintain Mag >2, K >4 in setting of A. fib. - Ordered mag sulfate 2 gm IV and KCl 40 mEq PO. - Monitor levels qAM. (10) DVT prophylaxis: - Holding Eliquis for procedure. Dispo: Started Tikosyn, will need to monitor for 3 days. Will need prescribed by administration intern at discharge. Co-pay of medication is $135.00/month -- pt. is agreeable with cost. Plan for pacemaker placement later this week per cardiology. Supervising Physician Co-Signing Physician Notes Attending Attestation - Chart reviewed in detail, and care plan d/w ROSA Ryder. I agree w/ the coreas components of her documentation. Unfortunately patient converted back to rapid a. fib late this am. Discussion was held between Dr. Palm and patient; she is agreeable to pacemaker placement. In meantime will continue with rate control strategy while awaiting pacer placement. Labs and vitals otherwise stable. Luis Ortega MD Subjective Pt. is doing well overall. She did have an episode of "fogginess" this morning. Pt. developed lightheaded feeling that lasted for ~15-20 minutes. She denies dizziness or vertigo. Symptoms are now resolved. They were not associated with position change, including standing. Will continue to monitor. Tikosyn was started on 04/06/18, cardiology following. Pt. converted to A. fib with RVR this afternoon; HR was 110-140's. She had increased anxiety/chest pain during episode and became very tearful. BP was stable; cardiology evaluated patient at bedside. Dr. Palm discussed continuing Tikosyn vs. placing pacemaker to allow for beta blockade medications in the future. The patient was agreeable to pacemaker placement but procedure will not be completed until 04/09/18 due to Eliquis. Will also decrease dose of Tikosyn as pt. has prolonged QTc on monitor. Pt. was agreeable to paying $135.00 /month for medication -- she can afford this cost if she continues to work. EKG showed A. fib with RVR and ST segment depression. Troponin is pending; will repeat q6hr x 2. She was upgraded to PCU/telemetry as pt. may require drip if no improvement in A. fib with RVR. Mag and KCl were also replaced with goal Mag >2, K >4. Review of Systems All systems reviewed & are unremarkable except as noted in HPI & below Constitutional: no fever and no chills Respiratory: no cough and no dyspnea Cardiovascular: + lightheadedness; no chest pain, no palpitations, no syncope and no edema Gastrointestinal: no abdominal pain, no nausea and no constipation Genitourinary (Female): no difficulty urinating Musculoskeletal: no joint pain Neurologic: no dizziness Psychiatric: + anxiety Allergy / Immunological: no rash Physical Exam 2 Vital Signs (Past 24 Hours): Last Vital Signs Temp 36.7 C 04/07/18 11:32 Pulse 75 04/07/18 11:32 Resp 18 04/07/18 11:32 BP 109/69 04/07/18 11:32 Pulse Ox 91 04/07/18 11:32 Physical Exam: General: Resting comfortably in no apparent distress HEENT: NC/AT; PERRLA with EOMI; [place] conjunctiva, MMM. Neck: Supple and nontender Cardiac: RRR w/o murmurs, gallops or rubs Lungs: CTA bilaterally; No rhonchi, wheezing, or rales Abdomen: Bowel normoactive X 4; Nontender to palpation Extremities: Warm. No edema present Neuro: No focal weakness Skin: No rash Results & Data Laboratory Results 04/07/18 04/07/18 Range/Units 06:08 06:08 WBC 8.20 (4.8-10.8) K/uL RBC 3.67 L (4.2-5.4) M/uL Hgb 12.0 (12.0-16.0) g/dL Hct 35.7 L (37-47) % MCV 97.3 (80-100) fL MCH 32.7 (25-34) pg MCHC 33.6 (32-36) g/dL RDW Std Deviation 51.8 H (36.4-46.3) fL RDW Coeff of Bret 14.5 (11.5-14.5) % Plt Count 226 (130-400) K/uL MPV 10.7 H (7.4-10.4) fL Sodium 138 (136-145) mmol/L Potassium 3.6 (3.5-5.1) mmol/L Chloride 105 (98-107) mmol/L Carbon Dioxide 28 (21-32) mmol/L Anion Gap 5.0 (3-11) BUN 17 (7-18) mg/dl Creatinine 0.85 (0.6-1.2) mg/dl Est Cr Clr Drug Dosing 73.7 ml/min Est GFR ( Amer) 79.9 Est GFR (Non-Af Amer) 68.9 BUN/Creatinine Ratio 20.3 H (10-20) Glucose 95 (70-99) mg/dl Calcium 8.7 (8.5-10.1) mg/dl Magnesium 1.9 (1.8-2.4) mg/dl
[2018-04-07] MEDS ORDERED: DIGOXIN 250 MCG in SYRINGE 9 ML IV STA (13:49)
[2018-04-07] MEDS ORDERED: dilTIAZem HCl 125 MG in DEXTROSE 5% 100 ML IV SCH (14:00)
[2018-04-07] MEDS ORDERED: POTASSIUM CHLORIDE 20 MEQ TABCR PO ONE (14:05)
--- NOTE | 2018-04-07 14:35 | Cardiology Progress Note ---
Date of Service April 07, 2018 Assessment & Plan (1) Atrial fibrillation: She has had recurrent atrial fibrillation, generally she is fairly aware of when she is in it, including an episode in the hospital several days ago. I have discussed with her on multiple occasions possible treatment options but she has been undecided. The options are to leave things as they are (which is not a very good option as her atrial fibrillation is rapid and we cannot put her on higher doses of rate control medications due to bradycardia), placing a pacemaker and increasing her rate control medications, using a different antiarrhythmic (Tikosyn or amiodarone) or consider atrial fibrillation ablation. She is willing to give a trial of Tikosyn to see if that works. After 2 doses of T consent 500 mg her QT interval is borderline prolonged and concerning. I am therefore going to reduce the dose to 250 mg twice daily starting this evening. In addition she went into atrial fibrillation with a moderately rapid heart rate this afternoon. I am concerned that this medication is not going to work, I am therefore going to make tentative plans for pacemaker implantation on April 09 after we let the Eliquis metabolize. (2) Sinus bradycardia: She has sinus bradycardia and rapid atrial fibrillation consistent with sick sinus syndrome. Sinus bradycardia may well be medication related however we need medications to control her rate during atrial fibrillation. Her heart rate is often in the 40s, it is reported to be in the 20s but I do not see rhythm strips showing that degree of sinus bradycardia although it is possible that it was transient and might explain her transient lightheaded symptoms. Now with recurrent atrial fibrillation she needs rate control medications and once again we will be faced with bradycardia. I recommended a pacemaker and will plan on that in 2 days time. (3) Anticoagulant long-term use: She is on Eliquis as an outpatient, she needs to continue this over the long run. I had held it on admission but when it appeared we would not put in a pacemaker I restarted it, however now I think we should reconsider pacemaker implantation. I am going to hold it now. Subjective She had recurrence of atrial fibrillation this afternoon, she is tearful about that although when she is relaxed she cannot really tell that she is in atrial fibrillation. Physical Exam 2 Vital Signs (Past 24 Hours): Last Vital Signs Temp 36.7 C 04/07/18 11:32 Pulse 75 02/12/19 11:32 Resp 18 04/07/18 11:32 BP 109/69 04/07/18 11:32 Pulse Ox 91 04/07/18 11:32 Physical Exam: Constitutional: Alert, cooperative and in no distress. Pulmonary: Clear to auscultation bilaterally. Cardiac: Irregular rhythm with no murmur, gallop or rub. Abdomen: Soft, nontender with normal bowel sounds. Extremities: No edema. Skin: No rash, ecchymoses or petechiae. Results & Data Diagnostic Findings Telemetry: She remained in sinus rhythm with frequent ectopy until this afternoon when she went into atrial fibrillation with a heart rate of about 130 bpm. Electrocardiogram: Her electrocardiogram today during sinus rhythm shows a prolonged QT interval, it appears to be longer than 500 ms although it is variable because of frequent ectopy. _ (1) Atrial fibrillation Atrial fibrillation type: paroxysmal Qualified Code(s): I48.0 - Paroxysmal atrial fibrillation
[2018-04-07] MEDS: MAGNESIUM SULFATE / D5W 1 GM/100 ML BAG IV SCH ×2 (14:38→16:02)
[2018-04-07] MEDS: DIGOXIN 0.25 MG TAB PO SCH (16:02)
[2018-04-07 16:19] LABS: BUN Creatinine Ratio 23.5 (10-20); Blood Urea Nitrogen 20 mg/dl (7-18); Calcium 9.5 mg/dl (8.5-10.1); Carbon Dioxide 29 mmol/L (21-32); Chloride 102 mmol/L (98-107); Creatinine Clr Calc Pharmacy 72.9 ml/min; Est GFR (African American) 78.8; Glucose 113 mg/dl (70-99); Potassium 3.7 mmol/L (3.5-5.1); Sodium 137 mmol/L (136-145)
[2018-04-07 16:24] LABS: Troponin I < 0.015 ng/ml (0-0.045)
[2018-04-07] MEDS: LORazepam 0.5 MG TAB PO PRN (17:46)
[2018-04-07] MEDS: DOFETILIDE 125 MCG CAPSULE PO SCH (20:55)
[2018-04-07] MEDS: MONTELUKAST SODIUM 10 MG TABLET PO SCH (21:47)
[2018-04-08 03:10] LABS: Hematocrit (blood only) 34.8 % (37-47); Hemoglobin 11.4 g/dL (12.0-16.0); Mean Corpuscular Hgb Conc 32.8 g/dL (32-36); Mean Corpuscular Volume 96.7 fL (80-100); Mean Platelet Volume 11.1 fL (7.4-10.4); Platelet Count 240 K/uL (130-400); RDW Coefficient of Variation 14.9 % (11.5-14.5); RDW Standard Deviation 53.3 fL (36.4-46.3); White Blood Count 7.95 K/uL (4.8-10.8)
[2018-04-08 03:28] LABS: BUN Creatinine Ratio 18.5 (10-20); Calcium 8.6 mg/dl (8.5-10.1); Creatinine Clr Calc Pharmacy 75.5 ml/min; Est GFR (African American) 82.2; Est GFR (Non-African American) 70.9; Magnesium 2.2 mg/dl (1.8-2.4); Potassium 3.9 mmol/L (3.5-5.1)
[2018-04-08 03:33] LABS: Troponin I 0.03 ng/ml (0-0.045)
[2018-04-08] MEDS: DOFETILIDE 125 MCG CAPSULE PO SCH (07:45)
[2018-04-08] MEDS ORDERED: POTASSIUM CHLORIDE 20 MEQ TABCR PO STA (08:25)
[2018-04-08] MEDS: LOSARTAN POTASSIUM 50 MG TAB PO SCH (08:43)
[2018-04-08] MEDS: MAGNESIUM OXIDE 400 MG TAB PO SCH (08:43)
[2018-04-08] MEDS: BUDESONIDE/FORMOTEROL FUMARATE 160/4.5 60 PUFFS/INHALER INH SCH ×2 (08:44→21:24)
[2018-04-08] MEDS: PANTOprazole 40 MG TAB PO SCH (08:44)
[2018-04-08] MEDS: TRIAMTERENE/HCTZ 37.5/25MG TAB PO SCH (08:44)
[2018-04-08] MEDS: PSYLLIUM 58.6% POWDER PACKET PO SCH (08:44)
--- NOTE | 2018-04-08 09:20 | Cardiology Progress Note ---
Date of Service April 08, 2018 Assessment & Plan (1) Atrial fibrillation: She has now had recurrent atrial fibrillation while on Tikosyn therapy, generally she is fairly aware of when she is in it, including currently. I have discussed with her on multiple occasions possible treatment options but she has been undecided. The options are to leave things as they are (which is not a very good option as her atrial fibrillation is rapid and we cannot put her on higher doses of rate control medications due to bradycardia), placing a pacemaker and increasing her rate control medications, using a different antiarrhythmic (Amiodarone is now the only option) or consider atrial fibrillation ablation. In the meantime we need to try to get her heart rate under control but I cannot safely do that without a pacemaker in place. I will plan on doing that tomorrow. I discussed the indications, procedure, risks and alternatives with her and she understands and agrees to proceed. Consent obtained. I also discussed conscious sedation with her and she understands and agrees. Consent obtained. (2) Sinus bradycardia: She has sinus bradycardia and rapid atrial fibrillation consistent with sick sinus syndrome. Sinus bradycardia may well be in part medication related however we need medications to control her rate during atrial fibrillation. Her heart rate during sinus rhythm is often in the 40s, it is reported to be in the 20s but I do not see rhythm strips showing that degree of sinus bradycardia although it is possible that it was transient and might explain her transient lightheaded symptoms preadmission. Now with recurrent atrial fibrillation she needs rate control medications and once again we will be faced with bradycardia. I recommended a pacemaker and will plan on doing that tomorrow. (3) Anticoagulant long-term use: She is on Eliquis as an outpatient, she needs to continue this over the long run. I had held it on admission but when it appeared we would not put in a pacemaker I restarted it, however now I think we should reconsider pacemaker implantation. She will be off of it for 48 hours tomorrow and we can proceed with pacemaker implantation. Subjective She remains aware that she is in atrial fibrillation but is not terribly bothered by it. She has not had lightheadedness or dizziness. She has no chest discomfort. She was walking in the hallway yesterday before she went into atrial fibrillation and noted that she had some cramping in her calves last evening. Physical Exam 2 Vital Signs (Past 24 Hours): Last Vital Signs Temp 36.4 C L 04/08/18 07:18 Pulse 103 H 04/08/18 07:18 Resp 18 04/08/18 07:18 BP 114/81 04/08/18 07:18 Pulse Ox 97 04/08/18 07:18 Physical Exam: Constitutional: Alert, cooperative and in no distress. Pulmonary: Clear to auscultation bilaterally. Cardiac: Irregular rhythm with no murmur, gallop or rub. Abdomen: Soft, nontender with normal bowel sounds. Extremities: +1 bilateral pedal edema. Skin: No rash, ecchymoses or petechiae. Results & Data Diagnostic Findings Telemetry: She remains in atrial fibrillation since yesterday, rate is averaging around 110-120 bpm. No severe tachycardia, no bradycardia. Electrocardiogram today: Atrial fibrillation, heart rate 121, ST-T abnormalities consistent with digoxin therapy. _ (1) Atrial fibrillation Atrial fibrillation type: paroxysmal Qualified Code(s): I48.0 - Paroxysmal atrial fibrillation
[2018-04-08] MEDS ORDERED: dilTIAZem HCL 30 MG TAB PO ONE (10:50)
--- NOTE | 2018-04-08 15:00 | Hospitalist Progress Note ---
Date of Service April 08, 2018 Assessment & Plan (1) Paroxysmal atrial fibrillation: - H/o cardioversion Jan [address] Haskins; is symptomatic with A. fib, was taking CCB prn at home but developed side lightheadedness. - Converted to A. fib with RVR on 04/07, remains in A. fib with HR up to 160's. - Discontinued Sotalol 04/05/18; started Tikosyn on 04/06 with no improvement, will d/c today. - Continue Digoxin 0.25 mg PO daily; Dig level was 0.9. - Will hold Eliquis for pacemaker placement. - Received Cardizem 30 mg PO x 1 dose for HR 150-160's this morning. (2) Symptomatic bradycardia: - Has rapid A. fib and sinus bradycardia, may be sick sinus syndrome vs. med induced. - Converted back to A. fib with RVR on 04/07, HR ~100-130's. - Plan for pacemaker placement on 04/09/18 per cardiology as pt. cannot tolerate beta blockade at this point. (3) ST segment changes on electrocardiogram: - EKG showed ST segment depression. - Denies cardiac symptoms with exception of chest pain related to anxiety. - Trop was mildly elevated, peaked at 0.034. - Cardiology following, EKG changes may be related to Digoxin. (4) HTN (hypertension): - Continue Losartan 50 mg daily and Triamterene/HCTZ as prescribed. - BP is well controlled. (5) Asthma: - No exacerbation at this time - Continue Symbicort BID with Duonbs q4hr prn. 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 (8) Anxiety: - Lorazepam 0.5 mg BID PRN - Has uncontrolled anxiety -- she would likely benefit from an SSRI to help long -term. (9) Electrolyte abnormality: - Maintain Mag >2, K >4 in setting of A. fib. - Ordered KCl 20 mEq PO. (10) DVT prophylaxis: - Holding Eliquis for procedure. Dispo: Pacemaker placement on 04/09/18, discharge likely on Friday04/10/18. Supervising Physician Co-Signing Physician Notes PA Supervision Note: I did not personally see or examine the patient today, but I verified all coreas points of ROSA Johnson's assessment and plan with the following exceptions/ additions: None Subjective Pt. was doing well overall this morning. She remained in A. fib overnight but HR was relatively well controlled in the low 100's. She reported feeling well overnight. She developed increased tachycardia this morning, HR 150-160's. Denied symptoms associated with A. fib with RVR, including chest pain, SOB, palpitations. Cardizem 30 mg PO x 1 dose was ordered with improvement. Plan for pacemaker on 04/09/18 per cardiology. Also discontinued Tikosyn as medication was not effective for A. fib. Review of Systems All systems reviewed & are unremarkable except as noted in HPI & below Constitutional: no fever, no chills and no weakness Respiratory: no cough and no dyspnea Cardiovascular: no chest pain, no palpitations and no edema Gastrointestinal: no abdominal pain, no nausea and no constipation Genitourinary (Female): no difficulty urinating Musculoskeletal: no joint pain Psychiatric: + anxiety Allergy / Immunological: no rash Physical Exam 2 Vital Signs (Past 24 Hours): Last Vital Signs Temp 36.6 C 04/08/18 11:25 Pulse 99 H 04/08/18 11:25 Resp 16 04/08/18 11:25 BP 142/85 H 04/08/18 11:25 Pulse Ox 97 04/08/18 11:25 Physical Exam: General: Resting comfortably in no apparent distress HEENT: NC/AT; PERRLA with EOMI; [place] conjunctiva, MMM. Neck: Supple and nontender Cardiac: irregular Lungs: CTA bilaterally; No rhonchi, wheezing, or rales Abdomen: Bowel normoactive X 4; Nontender to palpation Extremities: Warm. No edema present Neuro: No focal weakness Skin: No rash Results & Data Laboratory Results 04/08/18 04/08/18 04/08/18 Range/Units 14:07 08:36 02:05 WBC (4.8-10.8) K/uL RBC (4.2-5.4) M/uL Hgb (12.0-16.0) g/dL Hct (37-47) % MCV (80-100) fL MCH (25-34) pg MCHC (32-36) g/dL RDW Std Deviation (36.4-46.3) fL RDW Coeff of Bret (11.5-14.5) % Plt Count (130-400) K/uL MPV (7.4-10.4) fL Sodium 137 (136-145) mmol/L Potassium 3.9 (3.5-5.1) mmol/L Chloride 105 (98-107) mmol/L Carbon Dioxide 29 (21-32) mmol/L Anion Gap 3.0 (3-11) BUN 15 (7-18) mg/dl Creatinine 0.83 (0.6-1.2) mg/dl Est Cr Clr Drug Dosing 75.5 ml/min Est GFR ( Amer) 82.2 Est GFR (Non-Af Amer) 70.9 BUN/Creatinine Ratio 18.5 (10-20) Glucose 106 H (70-99) mg/dl Calcium 8.6 (8.5-10.1) mg/dl Magnesium 2.2 (1.8-2.4) mg/dl Troponin I 0.034 0.029 0.030 (0-0.045) ng/ml 04/08/18 04/07/18 04/07/18 Range/Units 02:05 19:56 15:19 WBC 7.95 (4.8-10.8) K/uL RBC 3.60 L (4.2-5.4) M/uL Hgb 11.4 L (12.0-16.0) g/dL Hct 34.8 L (37-47) % MCV 96.7 (80-100) fL MCH 31.7 (25-34) pg MCHC 32.8 (32-36) g/dL RDW Std Deviation 53.3 H (36.4-46.3) fL RDW Coeff of Bret 14.9 H (11.5-14.5) % Plt Count 240 (130-400) K/uL MPV 11.1 H (7.4-10.4) fL Sodium 137 (136-145) mmol/L Potassium 3.7 (3.5-5.1) mmol/L Chloride 102 (98-107) mmol/L Carbon Dioxide 29 (21-32) mmol/L Anion Gap 6.0 (3-11) BUN 20 H (7-18) mg/dl Creatinine 0.86 (0.6-1.2) mg/dl Est Cr Clr Drug Dosing 72.9 ml/min Est GFR ( Amer) 78.8 Est GFR (Non-Af Amer) 68.0 BUN/Creatinine Ratio 23.5 H (10-20) Glucose 113 H (70-99) mg/dl Calcium 9.5 (8.5-10.1) mg/dl Magnesium (1.8-2.4) mg/dl Troponin I 0.018 < 0.015 (0-0.045) ng/ml
[2018-04-08] MEDS: DIGOXIN 0.25 MG TAB PO SCH (16:45)
[2018-04-08] MEDS: MONTELUKAST SODIUM 10 MG TABLET PO SCH (21:24)
[2018-04-09] MEDS ORDERED: CEFAZOLIN 2000MG 2,000 MG/15 ML SYR IV SCH (06:00)
[2018-04-09] MEDS ORDERED: CEFAZOLIN 1000MG 1,000 MG/7.5 ML SYR IV SCH (06:00)
[2018-04-09 07:43] LABS: Hematocrit (blood only) 42.5 % (37-47); Hemoglobin 14.1 g/dL (12.0-16.0); Mean Corpuscular Hgb Conc 33.2 g/dL (32-36); Mean Corpuscular Volume 97.3 fL (80-100); Mean Platelet Volume 11.2 fL (7.4-10.4); Platelet Count 260 K/uL (130-400); RDW Coefficient of Variation 14.7 % (11.5-14.5); RDW Standard Deviation 52.6 fL (36.4-46.3); Red Blood Count 4.37 M/uL (4.2-5.4); White Blood Count 9.78 K/uL (4.8-10.8)
[2018-04-09] MEDS: LACTATED RINGER'S 1,000 ML IV SCH (07:45)
[2018-04-09] MEDS: PSYLLIUM 58.6% POWDER PACKET PO SCH (07:50)
[2018-04-09] MEDS: TRIAMTERENE/HCTZ 37.5/25MG TAB PO SCH ×2 (07:51→07:54)
[2018-04-09] MEDS: BUDESONIDE/FORMOTEROL FUMARATE 160/4.5 60 PUFFS/INHALER INH SCH ×2 (07:51→21:00)
[2018-04-09] MEDS: MAGNESIUM OXIDE 400 MG TAB PO SCH (07:55)
[2018-04-09] MEDS: PANTOprazole 40 MG TAB PO SCH (07:56)
[2018-04-09] MEDS: LOSARTAN POTASSIUM 50 MG TAB PO SCH (07:56)
[2018-04-09 08:18] LABS: BUN Creatinine Ratio 19.2 (10-20); Calcium 8.9 mg/dl (8.5-10.1); Creatinine Clr Calc Pharmacy 64.1 ml/min; Est GFR (African American) 67.3; Potassium 3.8 mmol/L (3.5-5.1)
[2018-04-09] MEDS ORDERED: POTASSIUM CHLORIDE 20 MEQ TABCR PO STA (08:20)
--- NOTE | 2018-04-09 10:23 | Cardiology Progress Note ---
Date of Service April 09, 2018 Assessment & Plan (1) Atrial fibrillation: She had recurrent atrial fibrillation while on Tikosyn therapy, generally she is fairly aware of when she is in it, including currently. The options are to leave things as they are (which is not a very good option as her atrial fibrillation is rapid and we cannot put her on higher doses of rate control medications due to bradycardia), placing a pacemaker and increasing her rate control medications, using a different antiarrhythmic (Amiodarone is now the only option) or consider atrial fibrillation ablation. In the meantime we need to try to get her heart rate under control but I cannot safely do that without a pacemaker in place. That is scheduled for today. I discussed the indications, procedure, risks and alternatives with her yesterday and she understands and agrees to proceed. Consent obtained yesterday. I also discussed conscious sedation with her and she understands and agrees. Consent obtained yesterday. (2) Sinus bradycardia: She has sinus bradycardia and rapid atrial fibrillation consistent with sick sinus syndrome. Sinus bradycardia may well be in part medication related however we need medications to control her rate during atrial fibrillation. Her heart rate during sinus rhythm is often in the 40s, it is reported to be in the 20s but I do not see rhythm strips showing that degree of sinus bradycardia although it is possible that it was transient and might explain her transient lightheaded symptoms preadmission. Now with recurrent atrial fibrillation she needs rate control medications and once again we will be faced with bradycardia. I recommended a pacemaker and will plan on doing that today. (3) Anticoagulant long-term use: She is on Eliquis as an outpatient, she needs to continue this over the long run. I had held it on admission but when it appeared we would not put in a pacemaker I restarted it, however now I think we should reconsider pacemaker implantation. She will be off of it for 48 hours today and we can proceed with pacemaker implantation. Subjective At rest she is feeling quite well despite her relatively high heart rate, she is however aware that she is in atrial fibrillation. No other complaints. Physical Exam 2 Vital Signs (Past 24 Hours): Last Vital Signs Temp 36.4 C L 04/09/18 07:54 Pulse 134 H 04/09/18 07:54 Resp 17 04/09/18 07:54 BP 107/70 04/09/18 07:54 Pulse Ox 97 04/09/18 07:54 Physical Exam: Constitutional: Alert, cooperative and in no distress. HEENT: Unremarkable Neck: No jugular venous distention, carotid pulses are irregular but otherwise normal and equal bilaterally without bruits. Pulmonary: Clear to auscultation bilaterally. Cardiac: Irregular rapid rhythm with no murmur, gallop or rub. Abdomen: Soft, nontender with normal bowel sounds. Extremities: No edema. Distal pulses intact. Neurologic: No focal findings. Gait is steady. Skin: No rash, ecchymoses or petechiae. Results & Data Diagnostic Findings Telemetry: Remains in atrial fibrillation, heart rate around 140 often. _ (1) Atrial fibrillation Atrial fibrillation type: paroxysmal Qualified Code(s): I48.0 - Paroxysmal atrial fibrillation
--- NOTE | 2018-04-09 10:24 | Pre Anesthesia Assessment ---
Date of Service April 09, 2018 Pre Sedation Assessment Vital Signs Temp Pulse Resp BP Pulse Ox 04/09/18 07:54 36.4 C L 134 H 17 107/70 97 04/09/18 03:25 36.7 C 115 H 18 155/81 H 95 04/08/18 23:00 36.7 C 97 H 18 119/72 95 04/08/18 19:49 37.3 C 109 H 18 119/59 L 96 04/08/18 16:30 37.0 C 111 H 18 112/63 95 04/08/18 11:25 36.6 C 99 H 16 142/85 H 97 Cardiovascular Additional Comments: Irregular rapid rate Respiratory normal respiratory effort, lungs clear to auscultation Pre-Sedation Airway Assessment Smoking Status: Never smoker Hx Sleep Apnea: No Hx Difficult Intubation: No Short, Thick Neck: No Thyromental Distance: > or= 3.5 Finger Breadths Mallampati Class: II ASA II NPO Status Date of Last Intake of Fluids: 04/08/18 Date of Last Intake of Solid Food: 04/08/18 Procedure Planning Contraindications for Sedation: none Current Medications Reviewed: Yes Notes The planned sedation has been discussed with the patient. Informed Consent was obtained. I have identified the patient, determined the appropriateness of sedation and have assessed the patient immediately prior to the procedure. All medicine(s) and interventions are by my order.
[2018-04-09] MEDS ORDERED: fentaNYL citrate 100 MCG/2 ML VIAL ONE ×2 (12:42→13:15)
[2018-04-09] MEDS ORDERED: MIDAZOLAM HCL 5 MG/ML 1 ML VIAL ONE (12:42)
[2018-04-09] MEDS ORDERED: WATER, STERILE FOR INJ 10 ML VIAL ONE (12:43)
[2018-04-09] MEDS ORDERED: CEFAZOLIN 250 MG/ML 1 GM VIAL ONE (12:43)
[2018-04-09 12:53] LABS: Appearance Urine Clear (Clear); Bacteria Urine Automated Negative (Negative); Bilirubin Urine Negative (Negative); Color Urine Yellow; Glucose Urine UA Negative (Negative); Ketones Urine Negative (Negative); Leukocyte Esterase Urine 1+ (Negative); Nitrite Urine Negative (Negative); Protein Urine Negative (Negative); Specific Gravity Urine 1.015 (1.000-1.030); Urobilinogen Urine Negative (Negative); WBC Urine Automated >30 /hpf (0-5); pH Urine 7.5 (4.5-7.5)
[2018-04-09] MEDS ORDERED: BACITRACIN INJ 50,000 UNIT VIAL ONE (12:57)
[2018-04-09] MEDS ORDERED: LIDOCAINE HCL 1% 20 ML VIAL ONE (12:57)
[2018-04-09] MEDS ORDERED: METOPROLOL TARTRATE 1 MG/ML VIAL IV ONE (13:13)
[2018-04-09] MEDS ORDERED: BACITRACIN OINT 0.9 GM PKT ONE (13:36)
[2018-04-09] MEDS ORDERED: KETOROLAC TROMETHAMINE 10 MG TABLET PO PRN (13:47)
--- NOTE | 2018-04-09 13:47 | Operative Report ---
Post Operative Report Pre & Post Diagnosis Operation Date: 04/09/18 12:00 Preop diagnosis: Tachybradycardia syndrome Postop diagnosis: Same Procedure Operation Date: 04/09/18 12:00 Actual Procedures p Pacer with A/V Leads (Dual)(Left) - Hector Palm MD Surgeon Hector Palm MD [employer] None Estimated Blood Loss 20 Findings Consistent with Post-Op Diagnosis Good lead position, excellent measurements except atrial pacing cannot be tested due to atrial fibrillation Specimens None Complications none Disposition Accompanied Patient To Recovery: No Disposition: PCU Description of Procedure After obtaining informed consent for the procedure, the patient was brought to the laboratory and prepped and draped in the standard sterile manner. The left prepectoral region was anesthetized with 1% lidocaine local anesthetic and left axillary venipuncture was performed by percutaneous technique and a guidewire placed through the left subclavian vein into the superior vena cava. The area was further infiltrated with 1% lidocaine local anesthetic and a 5 cm incision was made parallel to the left clavicle and 2 cm below it and carried down to the anterior pectoralis fascia. A pacemaker pocket was formed by blunt dissection anterior to the pectoralis fascia and a bacitracin-soaked sponge (50, 000 units in 50 cc normal saline solution) was placed in the pocket. An 8 [place] Medtronic lead introducer was placed over the guidewire into the left subclavian vein, the dilator and guidewire were removed and a bipolar active fixation steroid tipped ventricular lead was advanced through the introducer into the superior vena cava. A guidewire was placed through the introducer and the introducer was stripped from the lead and guidewire. Another 8 [place] Medtronic lead introducer was placed over the guidewire into the left subclavian vein, the dilator and guidewire were removed and a bipolar active fixation steroid tipped atrial lead was advanced through the introducer into the superior vena cava. A guidewire was placed back through the introducer and the introducer was stripped from the lead and guidewire. Using a curved stylette the ventricular lead was advanced through the right ventricular outflow tract into the pulmonary artery and then using a straight stylette was positioned in the right ventricular apex. The screw was extended fixing the lead in position. Pacing and sensing thresholds were evaluated in bipolar configuration and are recorded on the implant data sheet. Using a curved stylette the atrial lead was positioned in the region of the atrial appendage and the screw extended fixing the lead in position. Pacing and sensing thresholds were evaluated in bipolar configuration and are recorded on the implant data sheet. Once the leads were in position they were attached to the anterior pectoralis fascia using 2 sutures of 2-0 silk around each lead collar. The bacitracin- soaked sponge was removed from the pocket, hemostasis was obtained, the pacemaker was attached to the leads and placed in the pocket with the leads coiled beneath it. The incision was closed with a running double subcutaneous closure of 3-0 Vicryl absorbable suture, followed by running subcuticular skin closure of 4-0 Vicryl absorbable suture. Bacitracin ointment was placed on the incision and a pressure dressing applied. I attest to the content of the Intraoperative Record and any orders documented therein. Any exceptions are noted below.
--- NOTE | 2018-04-09 13:55 | Post Anesthesia Assessment ---
Date of Service April 09, 2018 Post Sedation Assessment Vital Signs Temp Pulse Pulse Resp BP BP Pulse Ox 04/09/18 13:36 114 H 158/71 H 04/09/18 11:25 36.5 C 112 H 19 151/93 H 97 04/09/18 07:54 36.4 C L 134 H 17 107/70 97 04/09/18 03:25 36.7 C 115 H 18 155/81 H 95 04/08/18 23:00 36.7 C 97 H 18 119/72 95 04/08/18 19:49 37.3 C 109 H 18 119/59 L 96 04/08/18 16:30 37.0 C 111 H 18 112/63 95 Recovery Score Activity: Moves 4 extremities Oxygen Saturation: > 92% On Room Air Discharge Sedation Level of Care: Fast Track Phase II Post Sedation Plan On clinical assessment, the patient appears to have tolerated the sedation without complications. Patient is recovering as anticipated. Patient will continue to be monitored by nursing and may be discharged when sedation discharge criteria are met per below protocol. Upon Completions of procedure and additional 15 minutes continue every 5 minute vital signs and the P.A.R. score; then discharge to a Phase I or Fast Track to Phase II per the following guidelines: * Discharge Patient to appropriate Phase II area if PAR is 8 or greater or return to pre- procedure baseline. The post - procedure orders will be as directed. * If PAR score is less than 8 or not return to pre-procedure baseline then patient will follow Phase I monitoring till PAR is reached for Phase II. The Phase I may be done in procedure room or may call to secure a Phase I area. * �If naloxone or flumazenil are used for reversal, hold in Phase I for continued monitoring from when last reversal dose was given for a minimum of 60 minutes or longer pending the nurse and/or physician discretion of patient condition before discharge to Phase II.� Please call the Sedation Physician to re-evaluate and complete post-note for discharge to Phase II area. Do NOT discharge from procedure sedation or Phase 1 until post- sedation evaluation note is complete by procedure /sedation MD Sedation Discharge Instructions to be given to the patient at discharge to home.
--- NOTE | 2018-04-09 15:52 | Hospitalist Progress Note ---
Date of Service April 09, 2018 Assessment & Plan (1) Paroxysmal atrial fibrillation: - H/o cardioversion Jan [address] Haskins; is symptomatic with A. fib, was taking CCB prn at home but developed side lightheadedness. - Converted to A. fib with RVR on 04/07, remained in A. fib with HR up to 150's. - Started Tikosyn on 04/06, discontinued on 04/08 due to poor response. - Continue Digoxin 0.25 mg PO daily; Dig level was 0.9. - Holding Eliquis for planned procedure. - S/p pacemaker placement today; start Metoprolol 50 mg BID and Sotalol 240 mg BID following procedure. (2) Symptomatic bradycardia: - Has rapid A. fib and sinus bradycardia, may be sick sinus syndrome vs. med induced. - Converted back to A. fib with RVR on 04/07, HR ~110-140's. - S/p pacemaker placement today per cardiology. (3) ST segment changes on electrocardiogram: - EKG showed ST segment depression. - Denies cardiac symptoms with exception of chest pain related to anxiety. - Trop was mildly elevated, peaked at 0.034. - Cardiology following, EKG changes may be related to Digoxin. (4) Dysuria: - U/a positive for 2+ blood, 1+ leuk ests, 10-30 RBC and Epith cells. - UC is pending. - Will start Rocephin for empiric coverage. (5) HTN (hypertension): - Continue Losartan 50 mg daily and Triamterene/HCTZ as prescribed. - BP is well controlled. (6) Asthma: - No exacerbation at this time - Continue Symbicort BID with Duonbs q4hr prn. 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 (9) Anxiety: - Lorazepam 0.5 mg BID PRN - Has uncontrolled anxiety -- she would likely benefit from an SSRI to help long -term. (10) Electrolyte abnormality: - Maintain Mag >2, K >4 in setting of A. fib. - Ordered KCl 20 mEq PO. (11) DVT prophylaxis: - Holding Eliquis for procedure. Dispo: Pacemaker placement today, discharge likely on Friday04/10/18. Supervising Physician Co-Signing Physician Notes PA Supervision Note: I did not personally see or examine the patient today, but I verified all coreas points of ROSA Johnson's assessment and plan with the following exceptions/ additions: None Subjective Pt. complains of dysuria today, new symptom over the last 24 hours. Denies suprapubic pain, fever or chills. HR has remained elevated, 140-150's, in A. fib. Will have pacemaker placed this afternoon. Review of Systems All systems reviewed & are unremarkable except as noted in HPI & below Constitutional: no fever and no chills Respiratory: no cough and no dyspnea Cardiovascular: no chest pain, no palpitations and no edema Gastrointestinal: no abdominal pain, no nausea and no constipation Genitourinary (Female): + dysuria; no difficulty urinating, no urinary frequency and no hematuria Musculoskeletal: no joint pain Allergy / Immunological: no rash Physical Exam 2 Vital Signs (Past 24 Hours): Last Vital Signs Temp 36.8 C 04/09/18 14:00 Pulse 112 H 04/09/18 14:46 Resp 20 04/09/18 14:46 BP 112/74 04/09/18 14:46 Pulse Ox 97 04/09/18 14:46 Physical Exam: General: Resting comfortably in no apparent distress HEENT: NC/AT; PERRLA with EOMI; [place] conjunctiva, MMM. Neck: Supple and nontender Cardiac: irregular Lungs: CTA bilaterally; No rhonchi, wheezing, or rales Abdomen: Bowel normoactive X 4; Nontender to palpation Extremities: Warm. No edema present Neuro: No focal weakness Skin: No rash Results & Data Laboratory Results 04/09/18 04/09/18 04/09/18 Range/Units 12:00 07:12 07:12 WBC 9.78 (4.8-10.8) K/uL RBC 4.37 (4.2-5.4) M/uL Hgb 14.1 (12.0-16.0) g/dL Hct 42.5 (37-47) % MCV 97.3 (80-100) fL MCH 32.3 (25-34) pg MCHC 33.2 (32-36) g/dL RDW Std Deviation 52.6 H (36.4-46.3) fL RDW Coeff of Bret 14.7 H (11.5-14.5) % Plt Count 260 (130-400) K/uL MPV 11.2 H (7.4-10.4) fL Sodium 138 (136-145) mmol/L Potassium 3.8 (3.5-5.1) mmol/L Chloride 102 (98-107) mmol/L Carbon Dioxide 28 (21-32) mmol/L Anion Gap 8.0 (3-11) BUN 19 H (7-18) mg/dl Creatinine 0.98 (0.6-1.2) mg/dl Est Cr Clr Drug Dosing 64.1 ml/min Est GFR ( Amer) 67.3 Est GFR (Non-Af Amer) 58.0 BUN/Creatinine Ratio 19.2 (10-20) Glucose 108 H (70-99) mg/dl Calcium 8.9 (8.5-10.1) mg/dl Magnesium 2.0 (1.8-2.4) mg/dl Urine Color Yellow Urine Appearance Clear (Clear) Urine pH 7.5 (4.5-7.5) Ur Specific [place] 1.015 (1.000-1.030) Urine Protein Negative (Negative) Urine Glucose (UA) Negative (Negative) Urine Ketones Negative (Negative) Urine Blood 2+ H (Negative) Urine Nitrite Negative (Negative) Urine Bilirubin Negative (Negative) Urine Urobilinogen Negative (Negative) Ur Leukocyte Esterase 1+ H (Negative) Urine WBC (Auto) >30 H (0-5) /hpf Urine RBC (Auto) 10-30 H (0-4) /hpf U Hyaline Cast (Auto) 1-5 (0-5) /lpf U Epithel Cells (Auto) 5-10 H (0-5) /lpf Urine Bacteria (Auto) Negative (Negative)
[2018-04-09] MEDS: DIGOXIN 0.25 MG TAB PO SCH (16:14)
[2018-04-09] MEDS: SOTALOL HCL 80 MG TAB PO SCH ×2 (16:14→20:55)
[2018-04-09] MEDS: cefTRIAXone SODIUM 1,000 MG in SODIUM CHLOR 0.9% AD-VAN 50 ML IV SCH (20:11)
[2018-04-09] MEDS: MONTELUKAST SODIUM 10 MG TABLET PO SCH (20:58)
[2018-04-09] MEDS: METOPROLOL TARTRATE 50 MG TAB PO SCH (21:00)
[2018-04-10 07:14] LABS: Hematocrit (blood only) 35.5 % (37-47); Hemoglobin 11.7 g/dL (12.0-16.0); Mean Platelet Volume 10.8 fL (7.4-10.4); Platelet Count 220 K/uL (130-400); RDW Standard Deviation 53.3 fL (36.4-46.3); Red Blood Count 3.66 M/uL (4.2-5.4); White Blood Count 7.72 K/uL (4.8-10.8)
--- NOTE | 2018-04-10 07:23 | XRay Report ---
XR chest 2V routine CLINICAL HISTORY: EXACT TIME ORDERED Evaluate for pneumothorax and l COMPARISON STUDY: 04/04/2018 FINDINGS: Interval placement of a permanent bipolar cardiac pacer. Lungs are clear. No evidence pneum othorax. Leads are in good position. IMPRESSION: Permanent bipolar cardiac pacemaker with leads in good position. No evidence for pneumot horax. The above report was generated using voice recognition software. It may contain grammatical, syntax or spelling errors. Electronically signed by: Tj Taylor M.D. 04/10/2018 7:22 AM
[2018-04-10] MEDS: MAGNESIUM OXIDE 400 MG TAB PO SCH (07:41)
[2018-04-10] MEDS: PANTOprazole 40 MG TAB PO SCH (07:42)
[2018-04-10] MEDS: TRIAMTERENE/HCTZ 37.5/25MG TAB PO SCH (07:42)
[2018-04-10] MEDS: METOPROLOL TARTRATE 50 MG TAB PO SCH ×2 (07:42→20:40)
[2018-04-10] MEDS: SOTALOL HCL 80 MG TAB PO SCH ×2 (07:42→20:40)
[2018-04-10] MEDS: LOSARTAN POTASSIUM 50 MG TAB PO SCH (07:42)
[2018-04-10] MEDS: ACETAMINOPHEN 325 MG TAB PO PRN ×3 (07:45→22:17)
[2018-04-10] MEDS: PSYLLIUM 58.6% POWDER PACKET PO SCH (07:46)
[2018-04-10] MEDS: BUDESONIDE/FORMOTEROL FUMARATE 160/4.5 60 PUFFS/INHALER INH SCH ×2 (07:50→20:40)
[2018-04-10 07:53] LABS: BUN Creatinine Ratio 28.2 (10-20); Calcium 8.3 mg/dl (8.5-10.1); Creatinine Clr Calc Pharmacy 59.6 ml/min; Est GFR (African American) 61.9; Est GFR (Non-African American) 53.4; Potassium 4.4 mmol/L (3.5-5.1)
--- NOTE | 2018-04-10 08:31 | Cardiology Progress Note ---
Date of Service April 10, 2018 Assessment & Plan (1) Atrial fibrillation: Sotalol is the best drug we have found for her arrhythmia, we have not tried amiodarone which might be better but of course is more toxic. On sotalol she had conversion to atrial pacing last evening. I would leave her on her current dose of sotalol as well as her current dose of metoprolol, which did help control her heart rate during atrial fibrillation. She should start Eliquis this morning. (2) Sinus bradycardia: She has sinus bradycardia and rapid atrial fibrillation consistent with sick sinus syndrome. Her rate will now be controlled by the pacemaker, that may also help minimize recurrent atrial fibrillation although we cannot count on that. We can now use medications for rate control. (3) Anticoagulant long-term use: She is on Eliquis as an outpatient, she needs to continue this over the long run. I had held it for the pacemaker, but I am going to restart it now she has no evidence of bleeding at the site and it is been 24 hours. Subjective Minimal incisional discomfort, no palpitations this morning Physical Exam 2 Vital Signs (Past 24 Hours): Last Vital Signs Temp 36.4 C L 04/10/18 06:52 Pulse 62 04/10/18 06:52 Resp 16 04/10/18 06:52 BP 113/50 L 04/10/18 06:52 Pulse Ox 96 04/10/18 06:52 Physical Exam: Site is clean and dry, no bleeding Results & Data Diagnostic Findings Telemetry: Atrial fibrillation until around 8 PM yesterday, probably atrial pacing since. Pacemaker evaluation: Excellent pacing and sensing characteristics in both leads Chest x-ray: No pneumothorax, leads in good position _ (1) Atrial fibrillation Atrial fibrillation type: paroxysmal Qualified Code(s): I48.0 - Paroxysmal atrial fibrillation
[2018-04-10] MEDS: LACTATED RINGER'S 1,000 ML IV SCH (09:21)
--- NOTE | 2018-04-10 15:20 | Hospitalist Progress Note ---
Date of Service April 10, 2018 Assessment & Plan (1) Paroxysmal atrial fibrillation: - H/o cardioversion Jan [address] Haskins; is symptomatic with A. fib, was taking CCB prn at home but developed side lightheadedness. - Converted to A. fib with RVR on 04/07. - Started Tikosyn on 04/06, discontinued on 04/08 due to poor response. - S/p pacemaker placement on 04/09; has paced rhythm on monitor, HR 60's. - Continue Digoxin 0.25 mg PO daily; Dig level was 0.9. - Resumed Eliquis post procedure. - Started Metoprolol 50 mg BID and Sotalol 240 mg BID after procedure, tolerating meds well. (2) Symptomatic bradycardia: - Has rapid A. fib and sinus bradycardia, may be sick sinus syndrome vs. med induced. - Converted back to A. fib with RVR on 04/07. - S/p pacemaker placement on 04/09 per cardiology; HR 60's, paced on monitor. (3) ST segment changes on electrocardiogram: - EKG showed ST segment depression. - Denied cardiac symptoms. - Trop was mildly elevated, peaked at 0.034. - Cardiology following, EKG changes may be related to Digoxin. (4) Dysuria: - U/a positive for 2+ blood, 1+ leuk ests, 10-30 RBC and Epith cells. - UC is negative (prelim) - Continue Rocephin for empiric coverage (Day 2 of 3) (5) HTN (hypertension): - Continue Losartan 50 mg daily and Triamterene/HCTZ as prescribed. - Started Metoprolol and Sotalol as noted above. - Monitor BP -- has been on the lower side, is not hypotensive. (6) Asthma: - No exacerbation at this time - Continue Symbicort BID with Duonebs q4hr prn. 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 (9) Anxiety: - Lorazepam 0.5 mg BID PRN - Has uncontrolled anxiety -- she would likely benefit from an SSRI to help long -term. (10) Electrolyte abnormality: - No replacement required. (11) DVT prophylaxis: - Eliquis. Dispo: Pacemaker placed on 04/09, discharge likely on 04/11 if asymptomatic over next 24 hours. Supervising Physician Co-Signing Physician Notes PA Supervision Note: I did not personally see or examine the patient today, but I verified all coreas points of ROSA Johnson's assessment and plan with the following exceptions/ additions: None Subjective Pt. is doing well. She had palpitations this morning, now resolved. Denies ongoing dysuria, suprapubic pain or urinary frequency. Will remain inpatient for 24 hours, discharge likely tomorrow. Review of Systems All systems reviewed & are unremarkable except as noted in HPI & below Constitutional: no fever and no chills Respiratory: no cough and no dyspnea Cardiovascular: + palpitations; no chest pain and no edema Gastrointestinal: no abdominal pain, no nausea and no constipation Genitourinary (Female): no dysuria, no difficulty urinating and no urinary frequency Musculoskeletal: no joint pain Allergy / Immunological: no rash Physical Exam 2 Vital Signs (Past 24 Hours): Last Vital Signs Temp 37.0 C 04/10/18 12:12 Pulse 62 04/10/18 12:12 Resp 18 04/10/18 12:12 BP 106/58 L 04/10/18 12:12 Pulse Ox 96 04/10/18 12:12 Physical Exam: General: Resting comfortably in no apparent distress HEENT: NC/AT; PERRLA with EOMI; [place] conjunctiva, MMM. Neck: Supple and nontender Cardiac: RRR Lungs: CTA bilaterally; No rhonchi, wheezing, or rales Abdomen: Bowel normoactive X 4; Nontender to palpation Extremities: Warm. No edema present Neuro: No focal weakness Skin: No rash Results & Data Laboratory Results 04/10/18 04/10/18 Range/Units 06:46 06:46 WBC 7.72 (4.8-10.8) K/uL RBC 3.66 L (4.2-5.4) M/uL Hgb 11.7 L (12.0-16.0) g/dL Hct 35.5 L (37-47) % MCV 97.0 (80-100) fL MCH 32.0 (25-34) pg MCHC 33.0 (32-36) g/dL RDW Std Deviation 53.3 H (36.4-46.3) fL RDW Coeff of Bret 15.0 H (11.5-14.5) % Plt Count 220 (130-400) K/uL MPV 10.8 H (7.4-10.4) fL Sodium 135 L (136-145) mmol/L Potassium 4.4 D (3.5-5.1) mmol/L Chloride 102 (98-107) mmol/L Carbon Dioxide 26 (21-32) mmol/L Anion Gap 7.0 (3-11) BUN 30 H D (7-18) mg/dl Creatinine 1.05 (0.6-1.2) mg/dl Est Cr Clr Drug Dosing 59.6 ml/min Est GFR ( Amer) 61.9 Est GFR (Non-Af Amer) 53.4 BUN/Creatinine Ratio 28.2 H (10-20) Glucose 93 (70-99) mg/dl Calcium 8.3 L (8.5-10.1) mg/dl Magnesium 2.0 (1.8-2.4) mg/dl
[2018-04-10] MEDS: DIGOXIN 0.25 MG TAB PO SCH (16:40)
[2018-04-10] MEDS: cefTRIAXone SODIUM 1,000 MG in SODIUM CHLOR 0.9% AD-VAN 50 ML IV SCH (18:36)
[2018-04-10] MEDS: APIXABAN 5 MG TABLET PO SCH (20:40)
[2018-04-10] MEDS: MONTELUKAST SODIUM 10 MG TABLET PO SCH (20:40)
[2018-04-11] MEDS: LACTATED RINGER'S 1,000 ML IV SCH (07:58)
[2018-04-11] MEDS: BUDESONIDE/FORMOTEROL FUMARATE 160/4.5 60 PUFFS/INHALER INH SCH (07:59)
[2018-04-11] MEDS: PSYLLIUM 58.6% POWDER PACKET PO SCH (07:59)
[2018-04-11] MEDS: LOSARTAN POTASSIUM 50 MG TAB PO SCH (08:00)
[2018-04-11] MEDS: SOTALOL HCL 80 MG TAB PO SCH (08:00)
[2018-04-11] MEDS: PANTOprazole 40 MG TAB PO SCH (08:00)
[2018-04-11] MEDS: TRIAMTERENE/HCTZ 37.5/25MG TAB PO SCH (08:00)
[2018-04-11] MEDS: MAGNESIUM OXIDE 400 MG TAB PO SCH (08:01)
[2018-04-11] MEDS: METOPROLOL TARTRATE 50 MG TAB PO SCH (08:01)
[2018-04-11] MEDS: APIXABAN 5 MG TABLET PO SCH (08:01)
[2018-04-11 08:17] LABS: Hematocrit (blood only) 37.3 % (37-47); Hemoglobin 12.2 g/dL (12.0-16.0); Mean Corpuscular Hgb Conc 32.7 g/dL (32-36); Mean Corpuscular Volume 96.9 fL (80-100); Mean Platelet Volume 11.1 fL (7.4-10.4); Platelet Count 199 K/uL (130-400); RDW Coefficient of Variation 14.7 % (11.5-14.5); RDW Standard Deviation 52.1 fL (36.4-46.3); Red Blood Count 3.85 M/uL (4.2-5.4); White Blood Count 6.72 K/uL (4.8-10.8)
[2018-04-11 08:43] LABS: BUN Creatinine Ratio 29.5 (10-20); Calcium 8.8 mg/dl (8.5-10.1); Creatinine Clr Calc Pharmacy 61.1 ml/min; Est GFR (African American) 64.9; Magnesium 2.2 mg/dl (1.8-2.4); Potassium 3.9 mmol/L (3.5-5.1)
[2018-04-11] MEDS ORDERED: cefTRIAXone SODIUM 1,000 MG in SODIUM CHLOR 0.9% AD-VAN 50 ML IV SCH (09:00)
[2018-04-11 11:48] VITALS: BP 110/65; PULSE 62; TEMP 97.5; O2SAT 96
--- NOTE | 2018-04-11 12:42 | Discharge Summary ---
Date of Service April 11, 2018 Admission HPI Per Admitting Provider 73yo F w/ hx of paroxsymal afib who presents for episodes of presyncope/vertigo and bradycardia. Per patient, she was cardioverted in 01/[address] Haskins and remained in sinus rhythm for about 2 weeks. She then felt herself go back into afib. She reports that she knows she goes into afib because her Fitbit shows her HR jumping up to the low 100 range (like up to 110) and the high 90s. She reports she spoke with Dr. Palm's office about the atrial fib, but could not get an appointment. Instead Jefry Morley called in a prescription for diltiazem 30 mg p.o. every 8 hours as needed while in A. fib. She reports that she took this for approximately 1 week. One day she felt an episode of this vertigo and then popped into sinus rhythm. She remained in sinus for several days, but felt she flipped to A. fib again yesterday. However, when she took her 2 doses of diltiazem this time, both times she felt lightheaded, dizzy, and vertiginous. In the ED, she was noted to have a heart rate in the 80s on check-in, but then dropped as low as 20 bpm on monitor during another episode of dizziness. However, her HR on EKG on admission was in sinus bradycardia, not atrial fibrillation. When asked about she tells between sinus and afib, she becomes very tearful and says that she gets anxious and just knows. Admission Exam Per Admitting Provider Constitutional: WD/WN, vitals as above Eyes: EOM intact bilaterally; no conjunctival abnormality ENMT: external ear and nose normal, oropharynx normal Neck: trachea midline, no thyromegaly normal visual inspection Respiratory: normal respiratory effort, lungs clear to auscultation no respiratory distress Cardiovascular: Rate/Rhythm: regular rhythm and + bradycardic Heart Sounds: normal S1 and normal S2 Vessels: no JVD Extremities: no edema Gastrointestinal (Abdomen): Inspection/Auscultation: abdomen normal to inspection; abdomen not distended Musculoskeletal: no cyanosis or clubbing, extremities motor strength 5/5 Skin: no rashes, warm and dry Neurologic: moves all extremities and awake Psychiatric: Orientation: alert, oriented to person and cooperative Principal Diagnosis Atrial Fibrillation with RVR Discharge Exam General: Resting comfortably in no apparent distress HEENT: NC/AT; PERRLA with EOMI; [place] conjunctiva, MMM. Neck: Supple and nontender Cardiac: RRR Lungs: CTA bilaterally; No rhonchi, wheezing, or rales Abdomen: Bowel normoactive X 4; Nontender to palpation Extremities: Warm. No edema present Neuro: No focal weakness Skin: No rash Discharge Data Allergies Allergy/AdvReac Type Severity Reaction Status Date / Time diphenhydramine Allergy Mild Dry mouth Verified 04/04/18 11:48 makes it hard to breathe doxycycline Allergy Mild GI Verified 04/04/18 11:48 Intolerance Perfume AdvReac Intermediate Asthma Uncoded 04/04/18 11:48 Consultations 04/04/18 13:29 ED Decision to Admit Stat 04/04/18 16:10 Consult Cardiology Routine Procedures Performed Operation Date: 04/09/18 12:00 Actual Procedures p Pacer with A/V Leads (Dual)(Left) - Hector Palm MD Ordered Studies 04/04/18 CXR 04/09/18 06:45 EP Lab Images for PACS ONCE 04/10/18 CXR Hospital Course (1) Paroxysmal atrial fibrillation: Admitted for A. fib with RVR. She was taking CCB at home as needed but developed lightheadedness 2/ medication. Pt. was not able to tolerate high doses of beta blockers at home due to bradycardia. Sotalol was discontinued on 04/05 per cardiology. Tikosyn was started on 04/06. Pt. converted back to A. fib with RVR on 04/07 while currently taking Tikosyn, therefore the medication was considered a failure. Medication was discontinued on 04/08. Pt. agreed to pacemaker; procedure was completed on 04/09. Sotalol and Metoprolol were started post operatively as HR remained stable ~60's. Digoxin was continued as prescribed during this admission. Eliquis was continued; med was held for procedure then restarted. She remained paced on monitor at discharge. She was instructed to take Metoprolol 25 mg (1/2 tablet) at home for recurrence of A. fib with RVR. Pt. will follow up with cardiology on 04/13/18. (2) Symptomatic bradycardia: Pt. likely has a sick sinus syndrome as she converts from A. fib to sinus bradycardia. Pacemaker was placed as noted above. (3) ST segment changes on electrocardiogram: EKG showed ST segment depression. Trop was mildly elevated, pt. denied symptoms. EKG changes may be related to Digoxin. (4) Dysuria: U/a positive for 2+ blood, 1+ leuk ests, 10-30 RBC and Epith cells. UC was negative. She received Rocephin x 3 days. (5) HTN (hypertension): Losartan and Triamterene/HCTZ were continued. Metoprolol and Sotalol were restarted following pacemaker placement. SBP was ~100s persistently with new medications. Losartan dose was decreased from 50 mg to 25 mg daily. (6) Asthma: No exacerbation at this time. Continued Symbicort BID with Duonebs q4hr prn. (7) GERD (gastroesophageal reflux disease): Continued Pantoprazole 40 mg daily (8) Endometrioid adenocarcinoma of uterus: S/P DEJAH/BSO on August 2017 with radiation completed on Oct 2017 - remission at this time. (9) Anxiety: Lorazepam 0.5 mg BID PRN. Has uncontrolled anxiety -- she would likely benefit from an SSRI to help long-term. Will need to follow up with PCP. (10) Electrolyte abnormality: None required. (11) DVT prophylaxis: Eliquis was ordered. Pt. was stable for discharge to home on 04/11/18. Will follow up with cardiology and PCP as an outpatient. Total Time Total Time Spent Total Time Spent (In Minutes): >30 minutes Total Time Includes: Examination of the Patient, Discharge Planning, Medication Reconciliation, Communication With Other Providers and Other Discharge Plan Discharge Items Patient Disposition: Home - Self-Care Reason For Visit: DIZZINESS Discharge Diagnosis: Atrial Fibrillation with RVR Condition: Good Discharge Goals: Diagnostic testing, Improve disease control, Improve function, Increase independence and Prevent disease Activity: Per 'Additional Instructions' section Exercise/Sports: Wait until after follow-up appointment Driving/Machine Use: Resume 1 day after discharge Non-emergency contact: Primary Care Provider and Radiographer Angiogram Call non-emergency contact if: you have any medication questions, your symptoms worsen, your pain is not controlled, your pain is worsening, your pain is unusual for you, you have a fever, your wound has increased redness, your wound has increased drainage and your wound pain has increased Follow-up/Referrals: Hector Palm MD [Family Provider] - 04/13/18 9:30 am Irma oClon MD [Primary Care Provider] - (Call for an appointment within 2 weeks please.) Diet: Heart Healthy Add Provider Instructions: 1. Paroxysmal Atrial Fibrillation * Pacemaker was placed during this admission. * Please follow up with cardiology on 04/13/18 for pacemaker evaluation. * Please continue Sotalol 240 mg twice daily and Metoprolol 50 mg twice daily as prescribed. * Continue Digoxin and Eliquis as prescribed. * Please take Metoprolol 25 mg (1/2 tablet) at home if you develop a rapid heart rate. You will also need to call cardiology for further instructions on management of A. fib at home for recurrence of symptoms. 2. Hypertension * Please continue Triamterene/HCTZ as prescribed. * Losartan dose has been decreased to 25 mg daily. 3. Please follow up with your primary care provider in 7-10 days to discuss this hospital admission. 4. Prescriptions for Losartan 25 mg and Metoprolol Tartrate 50 mg twice daily were sent to your pharmacy. 5. Please call your cleaner and trimmer or go to the ER if you develop the following: * Chest pain, shortness of breath or severe palpitations. ACTIVITY RECOMMENDATIONS: * Do not raise affected arm over head for 2 weeks. SPECIAL CARE INSTRUCTIONS: * If bleeding occurs, apply direct pressure to area for 5 minutes. * Call your doctor if you have severe pain, fever, drainage or bleeding at site. * Keep dressing on and dry for 48 hours then remove. * Keep any scheduled doctor's appointment. * Implant Card - hand held device with website information given. SKIN IRRITATION: * You may experience some redness and/or swelling in the area where radiation was administered. If any skin irritation occurs, please contact your family physician. FOLLOW UP VISIT: Keep any scheduled doctor appointments. Prescriptions: New losartan 25 mg Tablet 25 mg PO QAM 30 Days Qty: 30 RF: 0 metoprolol tartrate 50 mg Tablet 50 mg PO BID 30 Days Qty: 60 RF: 0 potassium 99 mg tablet 99 mg PO DAILY Qty: 1 RF: 0 Continued mupirocin 2 % ointment 1 appln TOP BID RF: 0 budesonide-formoterol [Symbicort] 160-4.5 mcg/actuation HFA aerosol inhaler 2 puffs INH BID RF: 0 omega-3 fatty acids 1,000 mg capsule 2,000 mg PO DAILY RF: 0 apixaban [Eliquis] 5 mg tablet 5 mg PO BID RF: 0 magnesium citrate 100 mg tablet 600 mg PO DAILY RF: 0 lorazepam 0.5 mg tablet 0.5 mg PO BID PRN (Reason: Anxiety) RF: 0 pantoprazole 40 mg tablet,delayed release (DR/EC) 40 mg PO QAM RF: 0 triamterene-hydrochlorothiazid 37.5-25 mg tablet 1 tab PO QAM RF: 0 montelukast 10 mg tablet 10 mg PO HS RF: 0 digoxin 125 mcg tablet 250 mcg PO QPM RF: 0 albuterol sulfate 90 mcg/actuation HFA aerosol inhaler 2 puff Inhalation QID PRN (Reason: Shortness Of Breath Or Wheezing) RF: 0 sotalol 240 mg tablet 240 mg PO BID RF: 0 cyanocobalamin (vitamin B-12) [Vitamin B-12] 1,000 mcg Tablet 1,000 mcg PO QAM RF: 0 psyllium husk [Fiber Laxative (psyllium husk)] 0.52 gram Capsule 0.52 g PO QAM RF: 0 coenzyme Q10 200 mg Capsule 200 mg PO QAM RF: 0 cholecalciferol (vitamin D3) [Vitamin D3] 5,000 unit Tablet 5,000 unit PO DAILY RF: 0 levalbuterol HCl 0.63 mg/3 mL solution for nebulization 3 ml Inhalation Q6H PRN (Reason: Shortness Of Breath Or Wheezing) RF: 0 lactobacillus combination no.4 [Probiotic] 3 billion cell Capsule 2 cap PO QAM RF: 0 turmeric 400 mg Capsule 400 mg PO QAM RF: 0 azelastine 137 mcg (0.1 %) aerosol,spray 1 spray Intranasal DAILY RF: 0 Discontinued potassium 99 mg Tablet 99 mg PO QAM RF: 0 losartan 50 mg tablet 50 mg PO QAM RF: 0 diltiazem HCl 30 mg tablet 30 mg PO DAILY RF: 0 Stand-Alone Forms: [facility], Work/School Release (Inpt) Discharge Orders: Discharge Order (Routine); Ordered 04/11/18 Ordered By: Andreia Mir Admission Data Admit Date/Time: 04/06/18 11:28 Attending Provider: Andreia Mir Admit Provider: Dale Morrissey Primary Care Provider: Irma Colon V. Other Providers: Dale Morrissey ; Hector Palm ; Melania Zeng ; Tim Roman ; Dorota Johnson Service: Telemetry Medical Other Interventions: Discharge Summary Assessment (RN) Last Done: 04/11/18 12:49 Pending Studies at Discharge: Yes Studies:: Urine culture 04/09: negative to date DC Date/Time DO NOT enter until pt leaves facility: 04/11/18 14:26 Supervising Physician Co-Signing Physician Notes PA Supervision Note: I personally saw and examined the patient. I verified all coreas points and agree with ROSA Johnson with the following exceptions and/or additions: Pt juan alejandro at time of dc, no complaints. Rates controlled. No pain. Vitals reviewed, Tele with paced rhythm NAD, AAOx3 RRR CTAB no wcr Ext no edema 73 yo female with PAF and SSS now s/p pacer, improved, stable for dc to home
[2018-04-12] MEDS ORDERED: LOSARTAN POTASSIUM 25 MG TAB PO SCH (09:00)
== END 2018-04-11 14:26 | disposition home or self-care (01) | DRG 243 ==
LOC: 2N 10:35 → ED 10:35 → SUATTDRO 14:34 → 2N 15:51 → SUATTDRO 04-06 11:28 → 2S 04-07 14:21
DX: F41.9 Anxiety disorder, unspecified; R94.31 Abnormal electrocardiogram [ECG] [EKG]; Z88.8 Allergy status to other drugs, medicaments and biological substances; Z79.01 Long term (current) use of anticoagulants; Z79.51 Long term (current) use of inhaled steroids; Z79.899 Other long term (current) drug therapy; Z82.49 Family history of ischemic heart disease and other diseases of the circulatory system; J45.909 Unspecified asthma, uncomplicated; R30.0 Dysuria; Z68.41 Body mass index [BMI] 40.0-44.9, adult; Z88.1 Allergy status to other antibiotic agents; Z92.3 Personal history of irradiation; I49.5 Sick sinus syndrome; E66.01 Morbid (severe) obesity due to excess calories; Z90.710 Acquired absence of both cervix and uterus; K21.9 Gastro-esophageal reflux disease without esophagitis; E87.8 Other disorders of electrolyte and fluid balance, not elsewhere classified; Z90.79 Acquired absence of other genital organ(s); Z90.722 Acquired absence of ovaries, bilateral; Z85.42 Personal history of malignant neoplasm of other parts of uterus; I10 Essential (primary) hypertension